=== PATIENT | male | born 1960 | race African-American/Black ===

== ENCOUNTER 2017-10-14 01:08 | Inpatient (IN) | payer MEDICARE, OTHER ==
[2017-10-14] VITALS (18 sets, daily range): BP systolic 108–158; BP diastolic 41–92
[~2017-10-14] VITALS: Ht 177.8 cm; Wt 102.5 kg
--- NOTE | 2017-10-14 01:17 | NUR ---
BIB [facility] C/C OF UMBILICUS ABDOMINAL PAIN. S/P HERNIATING MASS, PT STATES, "THIS HAPPENED AFTER LIFTING SOMETHING HEAVY TODAY." MASS IS NON PULSATING. NO S/S SOB. BILATERAL PEDAL PULSES PRESENT. MOVES ALL EXTREMITIES. S1S2 HEART SOUNDS NOTED. ACTIVE BOWEL SOUNDS NOTED. VSS. AWAITING MD ORDERS.
[2017-10-14] MEDS ORDERED: HYDROMORPHONE INJ 2 MG/ML DISP.SYRIN ONE ×3 (01:24→12:05)
[2017-10-14] MEDS ORDERED: ONDANSETRON HCL/PF 4 MG/2 ML VIAL ONE (01:24)
[2017-10-14] MEDS ORDERED: HYDROMORPHONE INJ 2 MG/ML DISP.SYRIN IV ONE (01:30)
[2017-10-14] MEDS ORDERED: ONDANSETRON HCL/PF 4 MG/2 ML VIAL IVP ONE (01:30)
[2017-10-14] MEDS ORDERED: IV NS 0.9% 1,000 ML BAG IV ONE ×2 (01:30→03:00)
[2017-10-14 01:38] LABS: BASOPHILS # (AUTO) 0.1 /CMM (0.0-0.2); BASOPHILS % (AUTO) 0.5 % (0.0-2.0); EOSINOPHILS % (AUTO) 3.2 % (0.0-6.0); HEMATOCRIT 49 % (39-51); HEMOGLOBIN 16.1 g/dL (13.5-17.5); LYMPHOCYTES # (AUTO) 3.2 /CMM (0.8-4.8); LYMPHOCYTES % (AUTO) 27.2 % (20.0-44.0); MEAN CORPUSCULAR HEMOGLOBIN 32 PG (26.0-33.0); MEAN CORPUSCULAR HGB CONC 33 g/dl (31.0-36.0); MEAN CORPUSCULAR VOLUME 96 fL (80-96); MONOCYTES # (AUTO) 0.9 /CMM (0.1-1.30); MONOCYTES % (AUTO) 7.9 % (2.0-12.0); NEUTROPHILS # (AUTO) 7.3 /CMM (1.8-8.9); NEUTROPHILS % (AUTO) 61.2 % (43.0-81.0); PLATELET COUNT (AUTO) 191 /CMM (150-450); RDW COEFFICIENT OF VARIATION 13.6 (11.5-15.0); RED BLOOD CELL COUNT(AUTO) 5.08 MIL/uL (4.5-6.0); WHITE BLOOD COUNT (AUTO) 11.9 K/uL (4.3-11.0)
[2017-10-14 01:53] LABS: INR 0.99 (0.87-1.13)
[2017-10-14 01:55] LABS: ALBUMIN 4.1 g/dL (3.4-5.0); BILIRUBIN,DIRECT 0.1 mg/dL (0.0-0.2); BILIRUBIN,TOTAL 0.3 mg/dL (0.2-1.0); CALCIUM, SERUM 9.4 mg/dL (8.5-10.1); POTASSIUM 2.9 mmol/L (3.5-5.1); TOTAL PROTEIN, SERUM 8.3 g/dL (6.4-8.2)
[2017-10-14] MEDS ORDERED: HYDROMORPHONE 1 MG/1 ML DISP.SYRIN IV ONE (02:00)
--- NOTE | 2017-10-14 02:10 | NUR ---
PT BROUGHT TO CT
--- NOTE | 2017-10-14 02:12 | NUR ---
PT RETURNED FROM CT
--- NOTE | 2017-10-14 02:20 | NUR ---
XRAY AT BEDSIDE
[2017-10-14] MEDS ORDERED: POTASSIUM CL. PREMIX PERIPHER. 50 ML IV ONE ×3 (02:37→02:48)
[2017-10-14] MEDS ORDERED: IV PREMIX 0.45% NS + KCL 1,000 ML IV ONE (02:37)
--- NOTE | 2017-10-14 02:39 | NUR ---
ER SPOKE TO DR. DELA CRUZ REGARDING PT ADMISSION.
--- NOTE | 2017-10-14 02:43 | NUR ---
ER TALKING TO DR. LUIS PEÑALOZA REGARDING PT ADMISSION. PENDING HOSPITAL ADMISSION.
--- NOTE | 2017-10-14 03:09 | NUR ---
REPORT GIVEN TO CURT DOUGLASS.
[2017-10-14] MEDS ORDERED: POTASSIUM CL. PREMIX PERIPHER. 50 ML ONE ×2 (03:29→04:07)
[2017-10-14] MEDS ORDERED: HYDROMORPHONE INJ 2 MG/ML DISP.SYRIN IV PRN (03:30)
--- NOTE | 2017-10-14 03:46 | NUR ---
MEDICATED PT ORDERED
--- NOTE | 2017-10-14 04:00 | NUR ---
[facility] RN OPENING NOTES: ADMITTED PATIENT FROM ED, PATIENT RECEIVED AWAKE AND ALERT NOT IN APPARENT DISTRESS ON ROOM AIR. SETTLED PATIENT IN, ATTACHED TO RN OPERATING ROOM, MONITOR REVEALS SINUS RHTYHM; VS LOGGED. SKIN CHECK DONE AND SKIN CARE RENDERED. PHOTODOCUMENTATION OF SKIN ISSUES FILED IN CHART. NO COMPLAINTS OF PAIN AT THIS TIME. NEW ORDERS NOTED AND CARRIED OUT. SAFETY MEASURES ENSURED; ORIENTED TO CALL LIGHT, WITHIN AT ALL TIMES. CONTINUOUSLY MONITORED.
--- NOTE | 2017-10-14 04:11 | NUR ---
PT TRANSFERED TO 116-1. STARTED INITIAL POTASSIUM 10MEQ. ENDORSED SECOND 10MEQ TO RN RAFAT. REMOVED TOTAL 20MEQ FROM OMNICELL TO ENDORSE TO RN RAFAT. PT STABLE CONDITION. VSS. NAD.
[2017-10-14] MEDS ORDERED: PIPERACILLIN /TAZOBACTAM 2.25 G VIAL IV ONE (05:28)
[2017-10-14] MEDS: PIPERACILLIN /TAZOBACTAM 4.5 G in IV NS 0.9% 50 ML IV SCH ×3 (06:09→17:05)
[2017-10-14] MEDS ORDERED: IV D5/0.45 NACL 1,000 ML IV PRN (06:30)
--- NOTE | 2017-10-14 06:30 | NUR ---
STONE CHIMNEY MASON NOTES SPOKE TO DR SMITH RELAYED LACTIC ACID OF 2.2 AND POTASSIUM OF 2.9 , 20 MEQ OF KCL IVPV GIVEN TOTAL FROM ER. DR SMITH WITH ORDER D5 1/2 NS NS AT 75CC/HR ORDERS NOTED AND CARRIED OUT.
[2017-10-14] MEDS ORDERED: ANESTHESIA TRAY IN PYXIS 1 EA TRAY MC ONE (06:41)
[2017-10-14] MEDS ORDERED: LIDOCAINE 0.5% HCL 50 ML VIAL ONE (06:42)
--- NOTE | 2017-10-14 06:45 | NUR ---
PNEUMATIC TESTER NOTES SEEN AND EXAMINED BY DR ALCALA .
--- NOTE | 2017-10-14 07:00 | NUR ---
EMPLOYEE BENEFITS INSURANCE AGENT NOTES PTS WAS CONSTRUCTION PLUMBER BY SURGERY , PTS MAINTAINED NPO , CONSENT FOR SURGERY TO BE DONE FROM OPERATING ROOM , PTS IS A/O X4 .V/S STABLE AFEBRILE, BS-208MG/DL.
[2017-10-14 07:01] LABS: APPEARANCE,URINE CLEAR (CLEAR); BILIRUBIN,URINE NEGATIVE (NEGATIVE); BLOOD, URINE NEGATIVE Ery/uL (NEGATIVE); COLOR,URINE YELLOW (YELLOW); KETONES,URINE NEGATIVE (NEGATIVE); LEUKOCYTE ESTERASE ,URINE NEGATIVE (NEGATIVE); NITRITE, URINE NEGATIVE (NEGATIVE); PH,URINE 6.5 (5.0-8.0); PROTEIN,URINE NEGATIVE (NEGATIVE); UGLUCOSE 3+ mg/dL (NEGATIVE); UROBILINOGEN,URINE 0.2 EU/dL (0.2)
[2017-10-14 07:13] LABS: BACTERIA,URINE None seen /HPF (None Seen); RBC,URINE 0-2 /HPF (0-2); SQUAMOUS EPITHELIAL CELL,UR 0-2 /HPF (None Seen); WBC,URINE 0-2 /HPF (0-3)
--- NOTE | 2017-10-14 07:21 | NUR ---
DRESS SHOE INSPECTOR NOTES PTS WAS ENDORSE TO CURT MARS.
[2017-10-14] MEDS ORDERED: FENTANYL PF 100MCG/2ML AMPUL ONE ×3 (07:30→10:20)
[2017-10-14] MEDS: POTASSIUM CL. PREMIX PERIPHER. 50 ML IV SCH ×6 (07:30→15:58)
[2017-10-14] MEDS ORDERED: BUPIVACAINE 0.5 % PF 150 MG/30 ML VIAL ONE (07:56)
[2017-10-14] MEDS ORDERED: ALBUTEROL FS 2.5 MG/3 ML VIAL.NEB ONE (11:52)
[2017-10-14] MEDS ORDERED: IPRATROPIUM NEB FS 0.5 MG/2.5 ML AMPUL.NEB ONE (11:52)
[2017-10-14] MEDS ORDERED: SUCCINYLCHOLINE CHLORIDE 20 MG/ML VIAL ONE (12:29)
--- NOTE | 2017-10-14 12:50 | NUR ---
RT NOTE RECEIVED PT FROM OR, INTUBATED WITH 8.5 ETT 23 @ THE LIP, PT ON CHARTED SETTINGS, VENT PLUGGED INTO RED OUTLET, CHANTELL AT [facility], PT STABLE WILL CONTINUE TO MONITOR Addendum: 10/14/17 at 1408 by ISMAEL MAN RT 25 @ THE LIP
--- NOTE | 2017-10-14 12:50 | NUR ---
ICU/RN: Pt received from OR, intubated, breathing even and unlabored, lung sounds clear, bilat chest rise; s/p intubation for resp distress post failed BiPAP trial, s/p emergent incarcerated hernia repair, dressing x8 C/D/I, L abd x1 dressing with mild saturation , no active bleeding noted. Abd binder in place. ST on monitor. Dr Olivera, anesthesiology and Dr Smith consulted and discussed POC. Awaiting CXR results.
[2017-10-14] MEDS: PANTOPRAZOLE 40 MG VIAL IV SCH (13:42)
--- NOTE | 2017-10-14 13:49 | NUR ---
ICU/RN: Non-admin for KCL IV replacements (unable to pull from [employer], reset required) and 1200 Zosyn dose. Zosyn administered intra-op.
--- NOTE | 2017-10-14 14:00 | NUR ---
ICU/RN: Dr Smith updated on pt status, discussed abg results, status. New orders noted and carried out.
[2017-10-14] MEDS: PROPOFOL 100 ML IV PRN ×4 (14:02→21:33)
[2017-10-14 14:05] LABS: ABG BASE EXCESS -1.4 mmol/L; ABG OXYGEN SATURATION 91.4 % (92.0-98.5); ABG PCO2 55.3 mmHg (35.0-45.0); ABG PH 7.294 (7.350-7.450); ABG PO2 60.5 mmHg (75.0-100.0); AaDO2 233.8 mmHg; COHb 0.6 % (0.5-1.5); MetHb 0.7 % (0.0-1.5); O2Hb 90.2 % (94.0-97.0); SITE, ABG Right Radial
[2017-10-14] MEDS: IV LR 1000 ML 1,000 ML IV PRN (14:18)
[2017-10-14] MEDS: HYDROMORPHONE INJ 2 MG/ML DISP.SYRIN IV PRN ×2 (14:20→19:54)
[2017-10-14] MEDS: IPRATROPIUM NEB FS 0.5 MG/2.5 ML AMPUL.NEB NEB SCH ×2 (14:51→19:49)
[2017-10-14] MEDS: ENOXAPARIN SODIUM 40 MG/0.4 ML DISP.SYRIN SQ SCH (14:58)
[2017-10-14] MEDS ORDERED: IV NS 0.9% 1,000 ML IV ONE (15:00)
[2017-10-14] MEDS ORDERED: DAPA10TA PO (15:24)
[2017-10-14] MEDS ORDERED: NEVI400T4 PO (15:24)
[2017-10-14] MEDS ORDERED: ABAC1TAB3 PO (15:24)
[2017-10-14] MEDS ORDERED: GLIP5TAB13 PO (15:24)
[2017-10-14] MEDS ORDERED: HYDR25TA4 PO (15:24)
[2017-10-14] MEDS ORDERED: OMEP40CA37 PO (15:24)
[2017-10-14] MEDS ORDERED: DUTA0.5C PO (15:24)
[2017-10-14] MEDS ORDERED: PRAV10TA40 PO (15:24)
[2017-10-14] MEDS ORDERED: ALFU10TA10 PO (15:24)
[2017-10-14] MEDS ORDERED: LOSA50TA21 PO (15:24)
[2017-10-14] MEDS ORDERED: GABA-534 PO (15:24)
[2017-10-14] MEDS ORDERED: CARV25TA2 PO (15:24)
[2017-10-14] MEDS ORDERED: CEFAZOLIN SODIUM 1 GM in IV SODIUM CHLORIDE 0.9% 50 ML IV SCH (17:00)
--- NOTE | 2017-10-14 19:30 | NUR ---
GLAUCOMA SPECIALIST: RECEIVED ORALLY INTUBATED PT AND S/P HERNIA REPAIR. VENT SETTINGS ORDERED WT 02 SAT 96% AND ABOVE. SEDATED ON DIPRIVAN AT 50MCG/KG.MIN. ABLE TO FOLLOW COMMANDS. NOTED WT FACIAL GRIMACE AND NODDED HIS HEAD WHEN ASKED IF IN PAIN. WILL ADMINISTER PAIN MED ORDERED. CONTINUE ON LR AT 120ML/HR WT GOOD URINE OUTPUT VIA GONZALEZ CATHETER. NO S/S OF INFILTRATION ON IV SITES. SR ON SUPERCALENDER OPERATOR. NOTED WT 100.5 TEMP, CONTINUOUS COOLING MEASURES RENDERED. GERMÁN NAJERA FOR FURTHER ORDERS RE FEVER. ABDOMINAL DRESSINGS WT BINDER IN PLACE WT NO ACTIVE BLEEDING. STILL ON BILAT. SOFT WRIST RESTRAINTS FOR EPISODES OF TRYING TO REACH TUBINGS. SKIN AND CIRCULATION WNL. HOB AT 45 DEGREES. SAFETY PRECAUTION NOTED AT ALL TIMES.
--- NOTE | 2017-10-14 21:20 | NUR ---
FRENCH COMBER: DR. SMITH CALLED AND MADE AWARE OF FEVER WT ORDER TO PLACE ON OGT, GIVE TYLENOL PRN FOR MILD PAIN/FEVER AND BLOOD CULTURE. NOTED AND CARRIED OUT. CONTINUOUS COOLING MEASURES RENDERED.
[2017-10-14] MEDS ORDERED: ACETAMINOPHEN LIQUID 160 MG/5 ML BOTTLE GT PRN (21:30)
--- NOTE | 2017-10-14 22:05 | NUR ---
CORE DRILL OPERATOR HELPER: ORAL AND AXILLARY TEMP NOW AT 99.5 AFTER COOLING MEASURES. WILL HOLD TYLENOL AT THIS TIME.
[2017-10-15] VITALS (31 sets, daily range): BP systolic 103–152; BP diastolic 53–120
[2017-10-15] MEDS: HYDROMORPHONE INJ 2 MG/ML DISP.SYRIN IV PRN ×3 (00:22→22:57)
[2017-10-15] MEDS: PIPERACILLIN /TAZOBACTAM 4.5 G in IV NS 0.9% 50 ML IV SCH ×5 (00:22→23:05)
[2017-10-15] MEDS: ACETAMINOPHEN 650 MG/20.3 ML UDC GT PRN ×3 (00:51→18:04)
[2017-10-15] MEDS: PROPOFOL 100 ML IV PRN ×4 (00:52→08:29)
[2017-10-15] MEDS: IV LR 1000 ML 1,000 ML IV PRN ×2 (00:53→10:13)
--- NOTE | 2017-10-15 01:00 | NUR ---
PATTERNMAKER WOOD: REASSESSED AFTER GIVEN TYLENOL FOR FEVER WT MINIMAL EFFECT. TEMP= 100.5 CONTINUE COOLING MEASURES.
[2017-10-15] MEDS: IPRATROPIUM NEB FS 0.5 MG/2.5 ML AMPUL.NEB NEB SCH ×4 (01:02→19:56)
--- NOTE | 2017-10-15 06:35 | NUR ---
FAX MACHINE OPERATOR: REMAINED SEDATED ON DIPRIVAN AT 50MCG/KG/MIN. NO ACUTE DISTRESS. NO EVIDENCE OF DISCOMFORT. STILL CORE TEMP AT 100.6. CONTINUE ON COOLING BLANKET.
[2017-10-15] MEDS ORDERED: DC PROPOFOL WHEN EXTUBATED XX PRN (08:00)
[2017-10-15 08:12] LABS: BASOPHILS % (AUTO) 0.4 % (0.0-2.0); EOSINOPHILS % (AUTO) 0.4 % (0.0-6.0); HEMATOCRIT 48 % (39-51); HEMOGLOBIN 15.6 g/dL (13.5-17.5); LYMPHOCYTES # (AUTO) 1.2 /CMM (0.8-4.8); LYMPHOCYTES % (AUTO) 10.5 % (20.0-44.0); MEAN CORPUSCULAR HEMOGLOBIN 32 PG (26.0-33.0); MEAN CORPUSCULAR HGB CONC 33 g/dl (31.0-36.0); MEAN CORPUSCULAR VOLUME 97 fL (80-96); MONOCYTES # (AUTO) 1.3 /CMM (0.1-1.30); MONOCYTES % (AUTO) 10.8 % (2.0-12.0); NEUTROPHILS % (AUTO) 77.9 % (43.0-81.0); PLATELET COUNT (AUTO) 148 /CMM (150-450); RDW COEFFICIENT OF VARIATION 14.7 (11.5-15.0); RED BLOOD CELL COUNT(AUTO) 4.92 MIL/uL (4.5-6.0); WHITE BLOOD COUNT (AUTO) 11.6 K/uL (4.3-11.0)
--- NOTE | 2017-10-15 08:15 | NUR ---
ICU/RN Pt off sedation, awake, alert, follows commands, communicates needs, no neuro deficits noted. Pt communicates that he is friends with [phone]. Agrees to release information to her and ask her to bring home meds. Called placed to Tamiko who will try to bring in home meds later today. Pt placed back on sedation for comfort.
[2017-10-15] MEDS: PANTOPRAZOLE 40 MG VIAL IV SCH (08:27)
[2017-10-15 08:41] LABS: CREATININE 0.8 mg/dL (0.6-1.3); MAGNESIUM 1.6 mg/dL (1.8-2.4); PHOSPHORUS 2.5 mg/dL (2.5-4.9); POTASSIUM 3.5 mmol/L (3.5-5.1)
[2017-10-15 08:42] LABS: THYROID STIMULATING HORMONE 0.109 uIU/mL (0.358-3.74)
[2017-10-15] MEDS: Magnesium 1GM/D5W 100ML PREMIX 100 ML IV SCH ×2 (09:40→10:51)
--- NOTE | 2017-10-15 12:00 | NUR ---
ICU/RN: Dr Sarah almazan; pt currently off sedation. Weaning trials initiated. Pt nods, in agreement with POC.
[2017-10-15 12:54] LABS: ABG BASE EXCESS 3.6 mmol/L; ABG PCO2 41.5 mmHg (35.0-45.0); ABG PH 7.447 (7.350-7.450); ABG PO2 94.2 mmHg (75.0-100.0); AaDO2 215.6 mmHg; COHb 0.4 % (0.5-1.5); MetHb 0.5 % (0.0-1.5); O2Hb 96.1 % (94.0-97.0); SITE, ABG Right Radial; VENT MODE, BG SIMV 4 PS 15 50%
--- NOTE | 2017-10-15 13:11 | NUR ---
RT NOTE PT EXTUBATED PER MD ORDER. PT AWAKE AND ALERT. NO DISTRESS NOTED. PT PLACED ON 3L NC WITH HUMIDIFIER. RN NOTIFIED. WILL CONTINUE TO MONITOR.
--- NOTE | 2017-10-15 13:30 | NUR ---
ICU/RN: Pt friendTamiko at bedside with pt home meds including HIV meds.; Chapo Garcia NP paged for orders. Home meds sent to Rx.
[2017-10-15] MEDS: ABACAVIR SULFATE PO SCH (17:46)
[2017-10-15] MEDS: LAMIVUDINE PO SCH (17:46)
--- NOTE | 2017-10-15 18:40 | NUR ---
ICU/RN: Chapo Garcia, TUBE CUTTER OPERATOR rounds; updated on pt status. Awaiting med rec. Will cont to monitor pt
--- NOTE | 2017-10-15 19:08 | NUR ---
ICU/RN: Pt resting in bed, states relief from Zofran and Dilaudid dose. Pain management with Tylenol ineffective. Bedside report given to Jm RN. Informed of pt Hx of sleep apnea, possible need for CPAP.
[2017-10-15] MEDS: ONDANSETRON HCL/PF 4 MG/2 ML VIAL IVP PRN (19:09)
--- NOTE | 2017-10-15 19:30 | NUR ---
RN INITIAL NOTES RECEIVED PATIENT IN BED, AWAKE, ALERT AND ORIENTED X4, ABLE TO VERBALIZE NEEDS. PATIENT WITH C/O ABDOMINAL PAIN 4/10, BUT STATES IT IS "GETTING BETTER AFTER THE MEDICATION." BREATHING EVEN, SLIGHTLY TACHYPNEIC, PATIENT DENIES ANY SOB. NOTED WITH PRODUCTIVE COUGH, TEACHING RENDERED REGARDING USING PILLOW TO BRACE ABDOMEN WHILE COUGHING, WITH VERBALIZATION OF UNDERSTANDING. ON TELEMETRY MONITORING, REVEALING SINUS TACHYCARDIA, HR 120s AT THIS TIME. LEFT AND RIGHT HAND #18G IVs PATENT AND INTACT, FLUSHED WITH NS, FREE FROM ANY S/S OF INFILTRATION OR PHLEBITIS, ONGOING IVF OF LR @ 40ML/HR. NOTED WITH MULTIPLE BANDAGES ON ABDOMEN OVER LAP SITES, ALL DRY AND INTACT, ABDOMINAL BINDER IN PLACE. CALL LIGHT LEFT WITHIN EASY REACH, BED IN LOWEST AND LOCKED POSITION. WILL CONTINUE TO CLOSELY MONITOR
--- NOTE | 2017-10-15 20:00 | NUR ---
RN NOTES PATIENT SEEN AND EXAMINED BY DR ALCALA. NO NEW ORDERS RECEIVED AT THIS TIME. WILL CONTINUE TO CLOSELY MONITOR THE PATIENT
[2017-10-15] MEDS: ENOXAPARIN SODIUM 40 MG/0.4 ML DISP.SYRIN SQ SCH (20:06)
--- NOTE | 2017-10-15 21:00 | NUR ---
RN NOTES PATIENT WITH PRODUCTIVE COUGH, NOTED WITH THICK, BAKER COLORED SPUTUM. INSTRUCTED PATIENT REGARDING YANKAUER USE, PATIENT VERBALIZES UNDERSTANDING.
--- NOTE | 2017-10-15 22:58 | NUR ---
RN NOTES PATIENT REQUESTING FOR IV PAIN MEDICATION, NONPHARMACOLOGICAL PAIN MANAGEMENT TECHNIQUES INEFFECTIVE. DILAUDID 1MG IVP ADMINISTERED ORDERED
--- NOTE | 2017-10-15 23:18 | NUR ---
RN NOTES PATIENT STATES HE HAS A HISTORY OF SLEEP APNEA, AND IS USUALLY ON CPAP AT NIGHT. PATIENT REQUESTING FOR CPAP AT THIS TIME, STATING "IT WILL PROBABLY HELP ME SLEEP." DR SMITH MADE AWARE OF PATIENT'S REQUEST, WITH ORDER TO START CPAP, SETTINGS PER RT. RT MARLENY MADE AWARE OF NEW ORDERS.
[2017-10-16] VITALS (29 sets, daily range): BP systolic 121–151; BP diastolic 62–120
[2017-10-16] MEDS: ACETAMINOPHEN 650 MG/20.3 ML UDC GT PRN ×2 (00:28→19:41)
[2017-10-16] MEDS: IPRATROPIUM NEB FS 0.5 MG/2.5 ML AMPUL.NEB NEB SCH ×4 (01:44→19:30)
[2017-10-16 05:16] LABS: BASOPHILS # (AUTO) 0.1 /CMM (0.0-0.2); BASOPHILS % (AUTO) 0.4 % (0.0-2.0); EOSINOPHILS % (AUTO) 0.3 % (0.0-6.0); HEMATOCRIT 45 % (39-51); HEMOGLOBIN 14.8 g/dL (13.5-17.5); LYMPHOCYTES # (AUTO) 1.1 /CMM (0.8-4.8); LYMPHOCYTES % (AUTO) 8.1 % (20.0-44.0); MEAN CORPUSCULAR HEMOGLOBIN 32 PG (26.0-33.0); MEAN CORPUSCULAR HGB CONC 33 g/dl (31.0-36.0); MEAN CORPUSCULAR VOLUME 97 fL (80-96); MONOCYTES # (AUTO) 1.2 /CMM (0.1-1.30); MONOCYTES % (AUTO) 8.3 % (2.0-12.0); NEUTROPHILS # (AUTO) 11.7 /CMM (1.8-8.9); NEUTROPHILS % (AUTO) 82.9 % (43.0-81.0); PLATELET COUNT (AUTO) 151 /CMM (150-450); RDW COEFFICIENT OF VARIATION 14.6 (11.5-15.0); RED BLOOD CELL COUNT(AUTO) 4.66 MIL/uL (4.5-6.0); WHITE BLOOD COUNT (AUTO) 14.1 K/uL (4.3-11.0)
[2017-10-16] MEDS: PIPERACILLIN /TAZOBACTAM 4.5 G in IV NS 0.9% 50 ML IV SCH ×4 (05:20→23:47)
--- NOTE | 2017-10-16 05:29 | NUR ---
RN NOTES PATIENT TAKEN OFF CPAP, PLACED BACK ON O2 VIA NC @ 4LPM, TOLERATING WELL, NO S/S OF RESPIRATORY DISTRESS AT THIS TIME, WILL CONTINUE TO CLOSELY MONITOR
[2017-10-16 05:42] LABS: CALCIUM, SERUM 8.4 mg/dL (8.5-10.1); CREATININE 0.9 mg/dL (0.6-1.3); MAGNESIUM 2.5 mg/dL (1.8-2.4); PHOSPHORUS 2.4 mg/dL (2.5-4.9); POTASSIUM 3.4 mmol/L (3.5-5.1)
--- NOTE | 2017-10-16 06:00 | NUR ---
RN NOTES PATIENT REFUSING TO HAVE BED BATH DUE TO PAIN. EXPLAINED TO THE PATIENT THAT SHEETS AND GOWN MUST AT LEAST BE CHANGED. PATIENT STILL STRONGLY REFUSING DUE TO PAIN. PATIENT STATES, "IT'S OKAY, IM STILL CLEAN. I HAVENT EATEN SO I HAVENT POOPED YET." PATIENT REMAINS CLEAN AND DRY, LINENS STRAIGHTENED OUT. PATIENT PLACED BACK ON CPAP PER REQUEST, WILL CONTINUE TO CLOSELY MONITOR
[2017-10-16] MEDS: ONDANSETRON HCL/PF 4 MG/2 ML VIAL IVP PRN (06:37)
--- NOTE | 2017-10-16 07:00 | NUR ---
RN CLOSING NOTES BEDSIDE REPORT GIVEN TO DAY SHIFT NURSE EDMUND FOR CONTINUITY OF CARE. PATIENT CONTINUES ON CPAP, TOLERATING WELL. IV SITES PATENT AND INTACT.
[2017-10-16] MEDS: PANTOPRAZOLE 40 MG VIAL IV SCH (07:24)
[2017-10-16] MEDS ORDERED: POTASSIUM PHOSPHATE MM 15 MMOL in IV D5W 250 ML IV SCH (07:30)
--- NOTE | 2017-10-16 07:35 | NUR ---
INITIAL HYDROGRAPHICAL TECHNICAL OFFICER NOTE RCVD PT AWAKE AND ALERT, ABLE TO FOLLOW COMMANDS, PT ABLE TO TRANSFER TO CHAIR WITH ONE PERSON ASSIST. SR ON TELE. TRANSITIONED FROM CPAP TO NC. GONZALEZ TO GRAVITY DRAINING CLOUDY, YELLOW URINE WITH SEDIMENT. ABDOMINAL BINDER IN PLACE, SURGICAL DRESSINGS C/D/I, NO S/O BLEEDING OBSERVED. IV SITES C/D/I/PATENT. IVF INFUSING NO S/O INFILTRATION/PHLEBITIS OBSERVED. WILL CONTINUE TO MONITOR PT FOR SAFETY AND COMFORT. CALL LIGHT WITHIN REACH. BED IN LOW AND LOCKED POSITION.
[2017-10-16] MEDS: POTASSIUM PHOSPHATE MM 7.5 MMOL in IV D5W 100 ML IV SCH ×2 (09:32→12:04)
[2017-10-16] MEDS ORDERED: POTASSIUM CHLORIDE 20 MEQ TAB.PRT.SR PO SCH (10:00)
[2017-10-16 10:41] LABS: ABG BASE EXCESS 0.5 mmol/L; ABG OXYGEN SATURATION 98.2 % (92.0-98.5); ABG PCO2 31.6 mmHg (35.0-45.0); ABG PH 7.481 (7.350-7.450); ABG PO2 126.8 mmHg (75.0-100.0); AaDO2 266.2 mmHg; COHb 0.5 % (0.5-1.5); MetHb 0.5 % (0.0-1.5); O2Hb 97.2 % (94.0-97.0); PEEP,BG 5 cm H2O; SITE, ABG Right Radial; VT, ABG 650 mL
--- NOTE | 2017-10-16 11:07 | NUR ---
DIRECTOR SCRIPT NOTE PT C/O CHEST TIGHTNESS, PAIN RADIATING TO HIS BACK. VITAL SIGNS STABLE, PER SUPERVISOR STOCK RANCH NEW BUNDLE BRANCH AND PVCs, DR. CISNEROS INFORMED ECG ORDERED. WILL CONTINUE TO MONITOR.
[2017-10-16] MEDS: MORPHINE SULFATE INJ 4 MG/ML DISP.SYRIN IV PRN ×2 (13:26→21:46)
[2017-10-16] MEDS: IV LR 1000 ML 1,000 ML IV PRN (13:32)
[2017-10-16] MEDS: MAG HYDROX/AL HYDROX/SIMETH 30 ML UDC PO PRN (14:00)
[2017-10-16] MEDS: NITROGLYCERIN 30 GM TUBE TOP SCH ×3 (16:45→23:49)
[2017-10-16] MEDS: ABACAVIR SULFATE PO SCH (17:15)
[2017-10-16] MEDS: LAMIVUDINE PO SCH (17:15)
--- NOTE | 2017-10-16 17:16 | NUR ---
CABLE INSPECTOR NOTE NITRO OINTMENT HELD SINCE LAST ADMINISTRATION WAS GIVEN AT 1645. WILL CONTINUE TO MONITOR.
[2017-10-16] MEDS: SUCRALFATE 1 G/10 ML UDC GT SCH ×2 (17:37→21:07)
--- NOTE | 2017-10-16 18:45 | NUR ---
HOURLY SHIFT MANAGER NOTE PT AWAKE AND ALERT, SHOWING NO S/O DISTRESS/PAIN. ST ON TELE. TOLERATING O2 VIA NC. GONZALEZ DISCONTINUED ORDERED. VOIDING A BUT TO URINAL. ABDOMINAL BINDER IN PLACE. IV SITES C/D/I/PATENT. NO S/O INFILTRATION/PHLEBITIS OBSERVED. IVF INFUSING. PT'S CARE WILL BE ENDORSED TO WESTERN TACK ASSEMBLY LINE WORKER RN FOR CONTINUITY OF CARE. BED IN LOW AND LOCKED POSITION. PT SITTING AT EDGE OF BED. DR. ALCALA IN UNIT ASSESSING PT HE WAS INFORMED REGARDING PT'S CARDIAC COMPLAINS EARLIER IN THE DAY AND THAT DR. CISNEROS RECOMMENDED TO KEEP HIM OVERNIGHT. MADE AWARE OF PT'S ABDOMINAL DISTENTION, UNABLE TO PASS GAS, GASTRIC REFLUX DISCOMFORT THROUGHOUT THE DAY. DR. ALCALA RECOMMENDED TO KEEP PT NPO AND CONTINUE TO MOBILIZE HIM. DR. NUNEZ IN UNIT ALSO ASSESSED PT AND RECOMMENDED TO START HIM ON SUCRAFATE FOR HIS GASTRIC COMPLAINTS.
[2017-10-16] MEDS: MENTHOL/CETYLPYRD (CEPACOL) 1 LOZ LOZENGE PO PRN ×2 (18:50→21:07)
--- NOTE | 2017-10-16 20:00 | NUR ---
RN NOTES PT IS AWAKE SITTING ON THE BED. NO ACUTE RESP DISTRESS ON O2 5LPM VIA NC. SATURATION 96%. COUGH WITH THICK SECRETION PRESENT PT ABLE SUCTIONED HIMSELF. COMPLAINING OF ABDOMINAL PAIN DURING COUGH, FLEET ENEMA GIVEN ORDERED, TYLENOL FOR PAIN AND COUGH PER PT. REQUESTED. IV SITE ON LH G 18 AND RT HAND G 18 WITH LR @ 40 ML/HR INTACT AND PATENT. TELE MONITOR. REVEALS ST 100'S. PT USED URINAL WITH VITO COLOR OUTPUT. AWARE TO USED CALL LIGHT. ABDOMEN DISTENDED SURGERY SITE INTACT NO ACTIVE BLEEDING. KEPT PT CLEAN AND DRY. WILL CONTINUE TO MONITOR.
[2017-10-16] MEDS ORDERED: NA PHOS,M-B/NA PHOS,DI-BA 1 EA ENEMA RC ONE (20:30)
--- NOTE | 2017-10-16 20:44 | NUR ---
PT TOOK BIPAP MASK OFF. PLACED BACK ON 5L NC. RN NOTIFIED. WILL CONTINUE TO MONITOR.
[2017-10-16] MEDS: ENOXAPARIN SODIUM 40 MG/0.4 ML DISP.SYRIN SQ SCH (21:16)
[2017-10-17] VITALS (21 sets, daily range): BP systolic 107–140; BP diastolic 62–96
[2017-10-17] MEDS: IPRATROPIUM NEB FS 0.5 MG/2.5 ML AMPUL.NEB NEB SCH ×4 (01:14→20:25)
--- NOTE | 2017-10-17 01:44 | NUR ---
RN NOTES PT TOOK OFF BIPAP AGAIN FOR THE 3RD TIME WANTS TO CHANGE TO DIFF MASK AGAIN, RT MADE AWARE.
[2017-10-17] MEDS: MORPHINE SULFATE INJ 4 MG/ML DISP.SYRIN IV PRN ×4 (02:19→21:46)
[2017-10-17] MEDS: ACETAMINOPHEN 650 MG/20.3 ML UDC GT PRN ×3 (04:16→21:11)
[2017-10-17] MEDS: MENTHOL/CETYLPYRD (CEPACOL) 1 LOZ LOZENGE PO PRN ×5 (04:20→21:48)
[2017-10-17 05:00] LABS: BASOPHILS % (AUTO) 0.2 % (0.0-2.0); EOSINOPHILS % (AUTO) 1.9 % (0.0-6.0); HEMATOCRIT 42 % (39-51); HEMOGLOBIN 13.5 g/dL (13.5-17.5); LYMPHOCYTES # (AUTO) 1.5 /CMM (0.8-4.8); LYMPHOCYTES % (AUTO) 11.1 % (20.0-44.0); MEAN CORPUSCULAR HEMOGLOBIN 32 PG (26.0-33.0); MEAN CORPUSCULAR HGB CONC 32 g/dl (31.0-36.0); MEAN CORPUSCULAR VOLUME 98 fL (80-96); MONOCYTES # (AUTO) 1.4 /CMM (0.1-1.30); MONOCYTES % (AUTO) 10.1 % (2.0-12.0); NEUTROPHILS # (AUTO) 10.4 /CMM (1.8-8.9); NEUTROPHILS % (AUTO) 76.7 % (43.0-81.0); PLATELET COUNT (AUTO) 154 /CMM (150-450); RDW COEFFICIENT OF VARIATION 14.5 (11.5-15.0); RED BLOOD CELL COUNT(AUTO) 4.24 MIL/uL (4.5-6.0); WHITE BLOOD COUNT (AUTO) 13.6 K/uL (4.3-11.0)
[2017-10-17 05:15] LABS: CREATININE 0.8 mg/dL (0.6-1.3); MAGNESIUM 2.3 mg/dL (1.8-2.4); PHOSPHORUS 2.5 mg/dL (2.5-4.9); POTASSIUM 3.8 mmol/L (3.5-5.1)
[2017-10-17] MEDS: PIPERACILLIN /TAZOBACTAM 4.5 G in IV NS 0.9% 50 ML IV SCH ×4 (05:53→23:45)
[2017-10-17] MEDS: NITROGLYCERIN 30 GM TUBE TOP SCH ×4 (05:54→23:46)
--- NOTE | 2017-10-17 06:46 | NUR ---
RN NOTES PT ASLEEP WELL ON BED. EPISODE OF SOB NOTED AT TIMES WHEN PT COUGH SO HARD THAT PUSHED HIS ABDOMEN AND CAUSE PAIN. . PT IS AFEBRILE THROUGHOUT THE SHIFT, PREFERS TO SUCTION SELF. CPAP PLACED IN A SHORT PERIODS OF TIME THEN PT REMOVE IT TIME TO TIME. PT IS AOX3 AWARE AND VERBALIZED UNDERSTANDING OF POC. PLACED PT TO 02 5LPM VIA NS SATURATION >95%. ALL NEEDS ATTENDED. CALL LIGHT KEPT WITHIN EASY REACH AND PROMPTLY.
--- NOTE | 2017-10-17 07:42 | NUR ---
PT REFUSED RESP TX AT THIS TIME. NO S/S OF SOB NOTED. WILL CONTINUE TO MONITOR PT Addendum: 10/17/17 at 0743 by TIM MELGAR RT Amended: Links added.
[2017-10-17] MEDS: PANTOPRAZOLE 40 MG VIAL IV SCH (08:01)
[2017-10-17] MEDS: MAG HYDROX/AL HYDROX/SIMETH 30 ML UDC PO PRN (08:01)
[2017-10-17] MEDS: SUCRALFATE 1 G/10 ML UDC GT SCH ×4 (08:01→21:45)
--- NOTE | 2017-10-17 08:45 | NUR ---
ICU/RN: Dr Brunson rounds; at bedside for cardiac consult. Updated on pt status, abn labs and POC dw pt. Cleared to leave ICU from cardiac perspective. New orders noted and carried out.
--- NOTE | 2017-10-17 09:30 | NUR ---
ICU/RN: Dr Sarah almazan; updated on pt status. Pt placed back on O2 2L/min via NC, noted with SOB with exertion. Ok to use own CPAP at night per MD, Will (friend) to bring machine later today. Ok to transfer to [facility] per pulm. soundscriber mechanic updated.
[2017-10-17] MEDS: ASPIRIN 81 MG TAB.CHEW PO SCH (09:32)
[2017-10-17] MEDS: GUAIFENESIN 300 MG/15 ML UDC PO PRN ×2 (09:37→20:49)
[2017-10-17] MEDS: ONDANSETRON HCL/PF 4 MG/2 ML VIAL IVP PRN ×2 (11:14→18:03)
[2017-10-17] MEDS: METOPROLOL TARTRATE 50 MG TABLET PO SCH ×3 (11:15→23:45)
[2017-10-17] MEDS: SENNOSIDES/DOCUSATE SODIUM 1 TAB TABLET PO SCH (13:13)
[2017-10-17] MEDS: POLYETHYLENE GLYCOL 3350 17 GM POWD.PACK PO SCH (13:14)
--- NOTE | 2017-10-17 13:30 | NUR ---
ICU/RN: Spoke with Dr Denise regarding POC, informed of hgb drop yesterday, s/p blood transfusion. Inquired whether MD plans to schedule an EGD for pt - per MD "I will come by later and see the patient." ux design manager updated. Addendum: 10/17/17 at 1401 by KAELA BORGES RN wrong entry, please disregard
--- NOTE | 2017-10-17 15:00 | NUR ---
ICU/RN: Dr Beltran notified of pending home med rec. Awaiting orders.
[2017-10-17] MEDS: IV LR 1000 ML 1,000 ML IV PRN (16:07)
[2017-10-17] MEDS: ABACAVIR SULFATE PO SCH ×2 (17:08→17:26)
[2017-10-17] MEDS: LAMIVUDINE PO SCH ×2 (17:08→17:26)
--- NOTE | 2017-10-17 17:26 | NUR ---
ICU/RN: Pt refused HIV meds; strongly educated on need to take routinely, still refuses.
--- NOTE | 2017-10-17 18:00 | NUR ---
RN NOTES RECEIVED PT ON BED, A/Ox4, ON O2 , 2L N/C , NO SOB NOTED , ON TELE SR HR IN 90'S , R AND L HAND IV SITES G 18 CDI, LR AT 40CC/HR RUNNING , SR UP x3, CALL LIGHT WITHIN EASY REACH , BED LOCKED AND IN LOWEST POSITION , CONTINUE TO MONITOR PT NGHIA .
--- NOTE | 2017-10-17 18:05 | NUR ---
ICU/RN: Pt transferred in stable condition with medications and belongings; no distress noted. Administered morphine and zofran for comfort. Reassessment and infusion of Zosyn endorsed to CURT Franks for INDIRA
--- NOTE | 2017-10-17 19:45 | NUR ---
[facility] RN OPENING NOTES RECEIVED REPORT FROM EMELY ELIAS. PATIENT A/A/O X4, ABLE TO MAKE NEEDS KNOWN. BREATHING EVEN & UNLABORED, TOLERATING O2 @ 2LPM VIA NC. ON TELE W/ SINUS RHYTHM, HR 86. DENIES ANY SOB OR DIFFICULTY BREATHING. DENIES ANY CHEST PAIN OR DISCOMFORT. RIGHT HAND IV #18 INTACT & PATENT W/ DRESSING CDI & IVF LR INFUSING WELL 40 ML/HR. RIGHT WRIST IV REMOVED D/T LEAKING NOTED. SURGICAL DRESSING CHECKED & REINFORCED & ABDOMINAL BINDER KEPT IN PLACE. DENIES ANY PAIN OR DISCOMFORT @ THIS TIME. SAFETY MEASURES IN PLACE & INSTRUCTED TO USE CALL LIGHT FOR ASSISTANCE. WILL CONTINUE TO MONITOR.
[2017-10-17] MEDS: ENOXAPARIN SODIUM 40 MG/0.4 ML DISP.SYRIN SQ SCH (21:48)
[2017-10-18] VITALS: BP 123/81
[2017-10-18] MEDS: IPRATROPIUM NEB FS 0.5 MG/2.5 ML AMPUL.NEB NEB SCH ×4 (01:30→20:14)
[2017-10-18] MEDS: MENTHOL/CETYLPYRD (CEPACOL) 1 LOZ LOZENGE PO PRN ×7 (01:34→21:43)
[2017-10-18] MEDS: MORPHINE SULFATE INJ 4 MG/ML DISP.SYRIN IV PRN ×5 (02:54→21:44)
[2017-10-18] MEDS: GUAIFENESIN 300 MG/15 ML UDC PO PRN ×2 (02:54→08:23)
[2017-10-18 04:00] VITALS: BP 110/76
[2017-10-18] MEDS: PIPERACILLIN /TAZOBACTAM 4.5 G in IV NS 0.9% 50 ML IV SCH ×3 (05:19→17:13)
[2017-10-18] MEDS: NITROGLYCERIN 30 GM TUBE TOP SCH ×3 (05:25→17:18)
[2017-10-18] MEDS: METOPROLOL TARTRATE 50 MG TABLET PO SCH ×3 (05:25→17:18)
[2017-10-18 06:36] LABS: BASOPHILS % (AUTO) 0.4 % (0.0-2.0); EOSINOPHILS % (AUTO) 5.4 % (0.0-6.0); HEMATOCRIT 40 % (39-51); HEMOGLOBIN 12.8 g/dL (13.5-17.5); LYMPHOCYTES # (AUTO) 1.9 /CMM (0.8-4.8); LYMPHOCYTES % (AUTO) 17.7 % (20.0-44.0); MEAN CORPUSCULAR HEMOGLOBIN 32 PG (26.0-33.0); MEAN CORPUSCULAR HGB CONC 32 g/dl (31.0-36.0); MEAN CORPUSCULAR VOLUME 98 fL (80-96); MONOCYTES # (AUTO) 1.3 /CMM (0.1-1.30); MONOCYTES % (AUTO) 12.3 % (2.0-12.0); NEUTROPHILS % (AUTO) 64.2 % (43.0-81.0); PLATELET COUNT (AUTO) 182 /CMM (150-450); RDW COEFFICIENT OF VARIATION 14.4 (11.5-15.0); RED BLOOD CELL COUNT(AUTO) 4.05 MIL/uL (4.5-6.0); WHITE BLOOD COUNT (AUTO) 10.9 K/uL (4.3-11.0)
[2017-10-18 06:38] LABS: CALCIUM, SERUM 8.2 mg/dL (8.5-10.1); CREATININE 0.8 mg/dL (0.6-1.3); MAGNESIUM 2.1 mg/dL (1.8-2.4); PHOSPHORUS 3.1 mg/dL (2.5-4.9); POTASSIUM 3.6 mmol/L (3.5-5.1)
--- NOTE | 2017-10-18 07:15 | NUR ---
[facility] RN OPENING NOTES RECEIVED REPORT FROM PM RN. PATIENT A/A/O X4, ABLE TO MAKE NEEDS KNOWN. BREATHING EVEN & UNLABORED, TOLERATING O2 @ 2LPM VIA NC. ON TELE W/ SINUS RHYTHM, HR 81. DENIES ANY SOB OR DIFFICULTY BREATHING. DENIES ANY CHEST PAIN OR DISCOMFORT. RIGHT HAND IV #18 INTACT & PATENT W/ DRESSING CDI & IVF LR INFUSING WELL 40 ML/HR. SURGICAL DRESSING CHECKED & REINFORCED & ABDOMINAL BINDER KEPT IN PLACE. C/O PAIN 07/05 . SAFETY MEASURES IN PLACE & INSTRUCTED TO USE CALL LIGHT FOR ASSISTANCE. BED IS LOCKED AND IN LOW POSITION.SRX3.WILL CONTINUE TO MONITOR.
[2017-10-18 08:00] VITALS: BP 118/64
[2017-10-18] MEDS: PANTOPRAZOLE 40 MG VIAL IV SCH (08:13)
[2017-10-18] MEDS: ASPIRIN 81 MG TAB.CHEW PO SCH (08:13)
[2017-10-18] MEDS: POLYETHYLENE GLYCOL 3350 17 GM POWD.PACK PO SCH (08:13)
[2017-10-18] MEDS: SENNOSIDES/DOCUSATE SODIUM 1 TAB TABLET PO SCH (08:13)
[2017-10-18] MEDS: SUCRALFATE 1 G/10 ML UDC GT SCH ×4 (08:13→21:44)
--- NOTE | 2017-10-18 10:00 | NUR ---
RN NOTES PATIENT HAS DAILY ABG ORDER.RT MADE AWARE.SPOKE TO NARCISO .SHE TOLD THAT SHE ASKED TO .DONT WANT TO DO AN ABG TODAY.ORDER IS FROM ICU FOLLOW UP.WILL FOLLOW UP TOMORROW.
[2017-10-18] MEDS: ACETAMINOPHEN 650 MG/20.3 ML UDC GT PRN ×2 (11:30→17:14)
--- NOTE | 2017-10-18 13:00 | NUR ---
RN NOTES SEEN BY MADE AWARE ABOUT ALL LABS AND MADE AWARE ABOUT PATIENT REQUEST FOR PO INTAKE.SHE ASKED TO FOLLOW UP WITH SURGERY DOCTOR.
[2017-10-18 16:00] VITALS: BP 109/52
[2017-10-18] MEDS: LAMIVUDINE PO SCH (17:15)
[2017-10-18] MEDS: ABACAVIR SULFATE PO SCH (17:15)
--- NOTE | 2017-10-18 18:47 | NUR ---
MEDSURG RN OPENING NOTES PATIENT A/A/O X4, ABLE TO MAKE NEEDS KNOWN. BREATHING EVEN & UNLABORED, TOLERATING O2 @ 2LPM VIA NC. DENIES ANY SOB OR DIFFICULTY BREATHING. DENIES ANY CHEST PAIN OR DISCOMFORT. RIGHT HAND IV #18 INTACT & PATENT W/ DRESSING CDI & IVF LR INFUSING WELL LR 40 ML/HR. SURGICAL DRESSING CHECKED & REINFORCED & ABDOMINAL BINDER KEPT IN PLACE. SAFETY MEASURES IN PLACE & INSTRUCTED TO USE CALL LIGHT FOR ASSISTANCE. BED IS LOCKED AND IN LOW POSITION.SRX3. MADE AWARE ABOUT PATIENT REQUEST TO START EATING.MADE HIM AWARE ALSO HE HAS ABDOMINAL DISTENTION.HE SAID HE WILL CALL BACK.WAITING FOR CALL BACK.WILL ENDORSE TO PM NURSE FOR INDIRA.
--- NOTE | 2017-10-18 18:59 | NUR ---
RN NOTES SEEN BY WITH NEW ORDER FOR CT OF ABDOMEN PELVIS WITH CONTRAST
--- NOTE | 2017-10-18 19:20 | NUR ---
RN OPENING NOTES PT AWAKE AND ALERT SITTING AT SIDE OF BED. PT ON 3L 02 VIA NASAL CANNULA. PT HAS A RIGHT HAND IV #18, INTACT AND PATENT. NO COMPLAINTS OF SOB OR DISTRESS AT THIS TIME. PT ABD SX DRESSINGS INTACT AND ABD BINDER IN PLACE. PER DAY SHIFT NURSE DR ALCALA ORDERED CT OF ABD DUE TO ABD DISTENTION. SAFETY PRECAUTIONS IN PLACE, BED IN LOWEST LOCKED POSITION, X2 SIDE RAILS UP CALL LIGHT WITHIN REACH. WILL CONTINUE TO MONITOR.
[2017-10-18] MEDS ORDERED: DIATR MEGLU/DIATRIZOATE SODIUM 30 ML BOTTLE (GASTROGRAPHIN) ONE (19:48)
[2017-10-18 20:00] VITALS: BP 121/75
[2017-10-18] MEDS: ENOXAPARIN SODIUM 40 MG/0.4 ML DISP.SYRIN SQ SCH (21:46)
[2017-10-18 22:00] VITALS: BP 121/75
[2017-10-18] MEDS: IV LR 1000 ML 1,000 ML IV PRN (22:38)
[2017-10-18] MEDS ORDERED: MENTHOL/CETYLPYRD (CEPACOL) 1 LOZ LOZENGE PO PRN (23:00)
--- NOTE | 2017-10-19 | NUR ---
RN NOTES PER MIKAEL AGUIRRE MD PT HAS A SMALL BOWEL OBSTRUCTION. DR ALEMAN WAS NOTIFIED AND ORDERED THE PATIENT TO CONTINUE TO BE NPO AND CMP FOR MORNING LABS.
[2017-10-19] MEDS: MENTHOL/CETYLPYRD (CEPACOL) 1 LOZ LOZENGE PO PRN ×2 (00:21→05:51)
[2017-10-19] MEDS: PIPERACILLIN /TAZOBACTAM 4.5 G in IV NS 0.9% 50 ML IV SCH ×5 (00:23→23:01)
[2017-10-19] MEDS: NITROGLYCERIN 30 GM TUBE TOP SCH ×5 (00:25→23:07)
[2017-10-19] MEDS: METOPROLOL TARTRATE 50 MG TABLET PO SCH ×5 (00:26→23:08)
[2017-10-19] MEDS: IPRATROPIUM NEB FS 0.5 MG/2.5 ML AMPUL.NEB NEB SCH ×4 (01:30→19:30)
[2017-10-19] MEDS: MORPHINE SULFATE INJ 4 MG/ML DISP.SYRIN IV PRN ×5 (01:35→23:18)
[2017-10-19] MEDS: GUAIFENESIN 300 MG/15 ML UDC PO PRN ×3 (01:43→23:02)
[2017-10-19 06:11] LABS: BASOPHILS # (AUTO) 0.1 /CMM (0.0-0.2); BASOPHILS % (AUTO) 0.5 % (0.0-2.0); EOSINOPHILS % (AUTO) 5.4 % (0.0-6.0); HEMATOCRIT 40 % (39-51); LYMPHOCYTES # (AUTO) 1.5 /CMM (0.8-4.8); LYMPHOCYTES % (AUTO) 14.8 % (20.0-44.0); MEAN CORPUSCULAR HEMOGLOBIN 32 PG (26.0-33.0); MEAN CORPUSCULAR HGB CONC 33 g/dl (31.0-36.0); MEAN CORPUSCULAR VOLUME 98 fL (80-96); MONOCYTES # (AUTO) 1.3 /CMM (0.1-1.30); MONOCYTES % (AUTO) 12.7 % (2.0-12.0); NEUTROPHILS # (AUTO) 6.7 /CMM (1.8-8.9); NEUTROPHILS % (AUTO) 66.6 % (43.0-81.0); PLATELET COUNT (AUTO) 190 /CMM (150-450); RDW COEFFICIENT OF VARIATION 14.4 (11.5-15.0); RED BLOOD CELL COUNT(AUTO) 4.05 MIL/uL (4.5-6.0)
[2017-10-19 06:48] LABS: ALBUMIN 2.9 g/dL (3.4-5.0); BILIRUBIN,TOTAL 0.7 mg/dL (0.2-1.0); CALCIUM, SERUM 8.7 mg/dL (8.5-10.1); CREATININE 0.8 mg/dL (0.6-1.3); MAGNESIUM 1.9 mg/dL (1.8-2.4); PHOSPHORUS 4.1 mg/dL (2.5-4.9); POTASSIUM 3.3 mmol/L (3.5-5.1); TOTAL PROTEIN, SERUM 7.2 g/dL (6.4-8.2)
--- NOTE | 2017-10-19 06:53 | NUR ---
RN CLOSING NOTES PT AWAKE AND ALERT RESTING IN BED. PT ON 3L 02 VIA NASAL CANNULA. PT HAS A RIGHT HAND IV #18 RUNNING LR @40ML/HR PT TOLERATING WELL. IV INTACT AND PATENT. NO COMPLAINTS OF SOB OR DISTRESS AT THIS TIME. PT ABD SX DRESSINGS INTACT AND ABD BINDER IN PLACE. ALL PATIENT NEEDS MET OVERNIGHT. SAFETY PRECAUTIONS IN PLACE, BED IN LOWEST LOCKED POSITION, X2 SIDE RAILS UP CALL LIGHT WITHIN REACH. WILL CONTINUE TO MONITOR.
--- NOTE | 2017-10-19 07:10 | NUR ---
MS RN NOTES PATIENT IN BED ALERT ORIENTED X 4.NO ACUTE DISTRESS NOTED. BREATHING UNLABORED. NO SOB NOTED.ON O2 @ 3LPM VIA NC. IV ACCESS PATENT AND INTACT, NO REDNESS NO SWELLING NOTED. ABDOMINAL SURGERY DRESSING INTACT, WITH ABDOMINAL BINDER, CLEAN AND DRY. CALL LIGHT WITHIN REACH. SAFETY MEASURES IN PLACE. BED LOCKED, LOW POSITION. HOB ELEVATED. WILL CONTINUE TO MONITOR ACCORDINGLY.
[2017-10-19 08:00] VITALS: BP 121/73
[2017-10-19] MEDS: SUCRALFATE 1 G/10 ML UDC GT SCH ×4 (08:38→21:51)
[2017-10-19] MEDS: PANTOPRAZOLE 40 MG VIAL IV SCH (08:38)
[2017-10-19] MEDS: POLYETHYLENE GLYCOL 3350 17 GM POWD.PACK PO SCH (08:38)
[2017-10-19] MEDS: ASPIRIN 81 MG TAB.CHEW PO SCH (08:38)
[2017-10-19] MEDS: POTASSIUM CHLORIDE 20 MEQ TAB.PRT.SR PO SCH ×2 (08:38→09:59)
[2017-10-19] MEDS: SENNOSIDES/DOCUSATE SODIUM 1 TAB TABLET PO SCH (08:38)
[2017-10-19 10:00] VITALS: BP 121/73
[2017-10-19] MEDS ORDERED: POTASSIUM CHLORIDE 20 MEQ TAB.PRT.SR PO SCH (12:00)
[2017-10-19 16:00] VITALS: BP 125/78
[2017-10-19] MEDS: ABACAVIR SULFATE PO SCH (17:41)
[2017-10-19] MEDS: LAMIVUDINE PO SCH (17:41)
--- NOTE | 2017-10-19 17:57 | NUR ---
MS NR NOTES RECEIVED NEW ORDERS FROM FREDRICK MOREAU TO GIVE FLEET ENEMA , MAY GIVE 2-3 DOSES UNTIL PATIENT HAVE BOWEL MOVEMENT. PATIENT AGREED. NOTED AND CARRIED OUT.
[2017-10-19] MEDS ORDERED: NA PHOS,M-B/NA PHOS,DI-BA 1 EA ENEMA RC PRN (18:00)
--- NOTE | 2017-10-19 19:00 | NUR ---
MS RN NOTES PATIENT IN BED ALERT ORIENTED X 4.NO ACUTE DISTRESS NOTED. BREATHING UNLABORED. NO SOB NOTED.ON O2 @ 3LPM VIA NC. IV ACCESS PATENT AND INTACT, NO REDNESS NO SWELLING NOTED. ABDOMINAL SURGERY DRESSING INTACT, WITH ABDOMINAL BINDER, CLEAN AND DRY. DUE MEDICATIONS GIVEN, NO ASE NOTED. NEEDS ATTENDED AND ANTICIPATED, KEPT CLEAN AND DRY AND COMFORTABLE. FLEET ENEMA GIVEN X1 , HAD MEDIUM, SOFT BOWEL MOVEMENT. CALL LIGHT WITHIN REACH. SAFETY MEASURES IN PLACE. BED LOCKED, LOW POSITION. HOB ELEVATED. ENDORSED TO NIGHT NURSE FOR CONTINUITY OF CARE.
[2017-10-19 20:00] VITALS: BP 104/71
--- NOTE | 2017-10-19 20:05 | NUR ---
RN NOTES RECEIVED PATIENT AWAKE SITTING AT THE SIDE OF THE BED WATCHING TV. NO DISTRESS NOTED. BREATHING EVEN AND UNLABORED. O2 AT 3LPM VIA NASAL CANNULA WELL TOLERATED. ALERT AND ORIENTED, VERBALLY ABLE TO COMMUNICATE NEEDS. COMPLAINING OF ABDOMINAL PAIN, NOTED ABDOMEN TO BE HARD AND TENDER. VITAL SIGNS WNL. KEPT CLEAN AND DRY. WILL CONTINUE TO MONITOR.
[2017-10-19] MEDS: ENOXAPARIN SODIUM 40 MG/0.4 ML DISP.SYRIN SQ SCH (21:58)
[2017-10-19 22:00] VITALS: BP 104/71
[2017-10-20] MEDS: IV LR 1000 ML 1,000 ML IV PRN (00:45)
[2017-10-20] MEDS: IPRATROPIUM NEB FS 0.5 MG/2.5 ML AMPUL.NEB NEB SCH ×4 (01:30→19:30)
[2017-10-20] MEDS: MORPHINE SULFATE INJ 4 MG/ML DISP.SYRIN IV PRN ×4 (03:11→18:05)
[2017-10-20] MEDS: PIPERACILLIN /TAZOBACTAM 4.5 G in IV NS 0.9% 50 ML IV SCH ×3 (05:37→17:52)
[2017-10-20 06:16] LABS: BASOPHILS % (AUTO) 0.3 % (0.0-2.0); EOSINOPHILS % (AUTO) 4.7 % (0.0-6.0); HEMATOCRIT 38 % (39-51); HEMOGLOBIN 12.6 g/dL (13.5-17.5); LYMPHOCYTES # (AUTO) 2.1 /CMM (0.8-4.8); LYMPHOCYTES % (AUTO) 22.7 % (20.0-44.0); MEAN CORPUSCULAR HEMOGLOBIN 32 PG (26.0-33.0); MEAN CORPUSCULAR HGB CONC 33 g/dl (31.0-36.0); MEAN CORPUSCULAR VOLUME 97 fL (80-96); MONOCYTES # (AUTO) 1.1 /CMM (0.1-1.30); MONOCYTES % (AUTO) 12.2 % (2.0-12.0); NEUTROPHILS # (AUTO) 5.6 /CMM (1.8-8.9); NEUTROPHILS % (AUTO) 60.1 % (43.0-81.0); PLATELET COUNT (AUTO) 222 /CMM (150-450); RED BLOOD CELL COUNT(AUTO) 3.96 MIL/uL (4.5-6.0); WHITE BLOOD COUNT (AUTO) 9.3 K/uL (4.3-11.0)
[2017-10-20 06:26] VITALS: BP 127/80
[2017-10-20 06:28] LABS: CALCIUM, SERUM 8.5 mg/dL (8.5-10.1); CREATININE 0.8 mg/dL (0.6-1.3); MAGNESIUM 1.9 mg/dL (1.8-2.4); PHOSPHORUS 4.1 mg/dL (2.5-4.9); POTASSIUM 3.6 mmol/L (3.5-5.1)
--- NOTE | 2017-10-20 06:31 | NUR ---
RN NOTES PATIENT SLEEPING COMFORTABLY IN BED. NO SIGNIFICANT CHANGE OF CONDITION. VITAL SIGNS WNL. ADMINISTERED MORPHINE AT 2300 AND 0300 FOR ABDOMINAL PAIN, WITH HELP. BREATHING EVEN AND UNLABORED. KEPT CLEAN AND DRY. WILL ENDORSE TO AM SHIFT FOR CONTINUITY OF CARE.
[2017-10-20] MEDS: NITROGLYCERIN 30 GM TUBE TOP SCH ×3 (06:35→17:52)
[2017-10-20] MEDS: METOPROLOL TARTRATE 50 MG TABLET PO SCH ×3 (06:36→17:51)
[2017-10-20] MEDS: SENNOSIDES/DOCUSATE SODIUM 1 TAB TABLET PO SCH (08:13)
[2017-10-20] MEDS: SUCRALFATE 1 G/10 ML UDC GT SCH ×4 (08:13→21:43)
[2017-10-20] MEDS: ASPIRIN 81 MG TAB.CHEW PO SCH (08:13)
[2017-10-20] MEDS: PANTOPRAZOLE 40 MG VIAL IV SCH (08:13)
[2017-10-20] MEDS: POLYETHYLENE GLYCOL 3350 17 GM POWD.PACK PO SCH (08:13)
--- NOTE | 2017-10-20 11:28 | NUR ---
PT STATED THAT HE HAS BEEN PASSING GAS NOTIFIED DR DELA CRUZ, WAITING FOR CALL BACK. WILL CONT TO MONITOR.
[2017-10-20] MEDS: MENTHOL/CETYLPYRD (CEPACOL) 1 LOZ LOZENGE PO PRN (12:23)
[2017-10-20] MEDS: GUAIFENESIN 300 MG/15 ML UDC PO PRN ×2 (12:34→18:04)
[2017-10-20] MEDS: LAMIVUDINE PO SCH (18:00)
[2017-10-20] MEDS: ABACAVIR SULFATE PO SCH (18:00)
--- NOTE | 2017-10-20 18:36 | NUR ---
PT HAS BEEN SNACKING ON ICE CHIPS, REMINDED PT THAT HIS ORDER IS ONLY SIPS OF WATER WITH MEDICATIONS AND NOTIFIED HEEL SHAVER NOT TO GIVE ICE CHIPS CONSTANTLY. NOTED PT'S ABDOMEN TO BE DISTENDED. PT HAS BEEN PASSING GAS AND HAVING BLACK LIQUID BOWEL MOVEMENT. MEDICATED WITH MORPHINE 4MG IV ORDERED AND ROBITUSSIN FOR COUGH. ENCOURAGED TO USE IS, ENCOURAGED TO AMBULATE ALONG HALLWAY. BED LOW AND LOCKED. CALL LIGHT WITHIN REACHED. WILL CONT TO MONITOR.
[2017-10-20 20:00] VITALS: BP 140/80
--- NOTE | 2017-10-20 20:15 | NUR ---
[facility] RN OPENING NOTES RECEIVED REPORT FROM CRISTIAN ELIAS. PATIENT A/A/O X4, ABLE TO MAKE NEEDS KNOWN. BREATHING EVEN & UNLABORED, TOLERATING O2 @ 2-3LPM VIA NC. DENIES ANY SOB OR DIFFICULTY BREATHING. PULSES PRESENT & BOUNDING. SKIN WARM, DRY & INTACT W/ SURGICAL DRESSINGS CDI & ABDOMINAL BINDER APPLIED. RIGHT HAND IV #18 INTACT & PATENT W/ DRESSING CDI & IVF LR INFUSING WELL 40 ML/HR. PULSES PRESENT & BOUNDING. SKIN WARM, DRY & INTACT W/ SURGICAL DRESSINGS CDI & ABDOMINAL BINDER KEPT IN PLACE. DENIES ANY PAIN OR DISCOMFORT @ THIS TIME. SAFETY MEASURES IN PLACE & INSTRUCTED TO USE CALL LIGHT FOR ASSISTANCE. WILL CONTINUE TO MONITOR. Addendum: 10/20/17 at 2055 by BENJIE HERNANDEZ RN CRIME SCENE INVESTIGATOR OPENING NOTES*
[2017-10-20] MEDS: ENOXAPARIN SODIUM 40 MG/0.4 ML DISP.SYRIN SQ SCH (21:44)
[2017-10-21] MEDS: PIPERACILLIN /TAZOBACTAM 4.5 G in IV NS 0.9% 50 ML IV SCH ×2 (00:50→05:23)
[2017-10-21] MEDS: METOPROLOL TARTRATE 50 MG TABLET PO SCH ×4 (00:50→17:12)
[2017-10-21] MEDS: NITROGLYCERIN 30 GM TUBE TOP SCH ×4 (00:51→17:17)
[2017-10-21] MEDS: GUAIFENESIN 300 MG/15 ML UDC PO PRN ×3 (00:53→17:21)
[2017-10-21] MEDS: MORPHINE SULFATE INJ 4 MG/ML DISP.SYRIN IV PRN ×5 (00:53→18:40)
[2017-10-21] MEDS: IPRATROPIUM NEB FS 0.5 MG/2.5 ML AMPUL.NEB NEB SCH ×4 (01:30→19:28)
[2017-10-21 04:00] VITALS: BP 126/72
[2017-10-21] MEDS: IV LR 1000 ML 1,000 ML IV PRN (05:23)
--- NOTE | 2017-10-21 07:38 | NUR ---
MS RN OPENING NOTES RECEIVED PATIENT IN STABLE CONDITION. IN NO APPARENT DISTRESS. BEDSIDE RAILS ARE UPX2. BED IS LOCKED AND LOWERED. CALL LIGHT IS WITHIN REACH. IV LINE IS INTACT AND PATENT. WILL CONTINUE TO MONITOR.
[2017-10-21 08:00] VITALS: BP 123/69
[2017-10-21] MEDS: SUCRALFATE 1 G/10 ML UDC GT SCH ×4 (08:56→21:12)
[2017-10-21] MEDS: POLYETHYLENE GLYCOL 3350 17 GM POWD.PACK PO SCH (08:57)
[2017-10-21] MEDS: ASPIRIN 81 MG TAB.CHEW PO SCH (08:57)
[2017-10-21] MEDS: SENNOSIDES/DOCUSATE SODIUM 1 TAB TABLET PO SCH (08:57)
[2017-10-21] MEDS: PANTOPRAZOLE 40 MG VIAL IV SCH (08:57)
--- NOTE | 2017-10-21 11:30 | NUR ---
NOTIFIED DR. ALCALA ABOUT PATIENTS NPO STATUS. ASKED DR. ALCALA IF PATIENT'S DIET SHOULD BE ADVANCED OR REMAIN NPO. AWAITING ORDERS.
[2017-10-21 16:00] VITALS: BP 127/65
[2017-10-21] MEDS: ABACAVIR SULFATE PO SCH (17:18)
[2017-10-21] MEDS: LAMIVUDINE PO SCH (17:18)
--- NOTE | 2017-10-21 18:33 | NUR ---
MS RN CLOSING NOTES PATIENT IS RESTING IN BED. IN NO APPARENT DISTRESS. BEDSIDE RAILS ARE UPX2. BED IS LOCKED AND LOWERED. CALL LIGHT IS WITHIN REACH. IV LINE IS INTACT AND PATENT. ALL NEEDS WERE MET. WILL ENDORSE CARE TO FILTER TANK TENDER HELPER HEAD NURSE FOR INDIRA.
[2017-10-21 20:00] VITALS: BP 144/85
[2017-10-21] MEDS: ENOXAPARIN SODIUM 40 MG/0.4 ML DISP.SYRIN SQ SCH (21:21)
[2017-10-22] MEDS: ACETAMINOPHEN 650 MG/20.3 ML UDC GT PRN (00:10)
[2017-10-22] MEDS: GUAIFENESIN 300 MG/15 ML UDC PO PRN ×2 (00:10→22:11)
[2017-10-22] MEDS: METOPROLOL TARTRATE 50 MG TABLET PO SCH ×4 (00:11→18:18)
[2017-10-22] MEDS: NITROGLYCERIN 30 GM TUBE TOP SCH ×4 (00:11→18:19)
[2017-10-22] MEDS: MORPHINE SULFATE INJ 4 MG/ML DISP.SYRIN IV PRN ×4 (00:15→17:36)
[2017-10-22] MEDS: IPRATROPIUM NEB FS 0.5 MG/2.5 ML AMPUL.NEB NEB SCH ×4 (01:28→19:30)
[2017-10-22 04:00] VITALS: BP 126/75
[2017-10-22 04:04] VITALS: BP 126/75
[2017-10-22] MEDS: IV LR 1000 ML 1,000 ML IV PRN (04:46)
[2017-10-22 08:00] VITALS: BP 132/70
[2017-10-22] MEDS: POLYETHYLENE GLYCOL 3350 17 GM POWD.PACK PO SCH (08:04)
[2017-10-22] MEDS: SENNOSIDES/DOCUSATE SODIUM 1 TAB TABLET PO SCH (08:04)
[2017-10-22] MEDS: ASPIRIN 81 MG TAB.CHEW PO SCH (08:17)
[2017-10-22] MEDS: PANTOPRAZOLE 40 MG VIAL IV SCH (08:17)
[2017-10-22] MEDS: SUCRALFATE 1 G/10 ML UDC GT SCH ×4 (08:17→21:55)
--- NOTE | 2017-10-22 08:30 | NUR ---
Nursing Initial Note Received patient from warehouse supervisor 3rd shift RNZander. Patient is alert and oriented. Patient knows he is scheduled for Small Bowel Follow Through test today. IV right forearm infusing IV fluid with no sign of infiltration. Patient on room air with no sign of respiratory distress.
[2017-10-22] MEDS ORDERED: DIATR MEGLU/DIATRIZOATE SODIUM 120 ML BOTTLE (GASTROGRAPHIN) ONE (09:55)
--- NOTE | 2017-10-22 12:23 | NUR ---
1000: Patient taken to radiology for Small Bowel Follow Through test. 1220: I called radiology to ask on patient's status. Radiology said they are taking the last image and bpateitn should be done in 15 minutes unless there is more test the MD wants done
--- NOTE | 2017-10-22 13:29 | NUR ---
Patient returned from radiology in stable condition on oxygen. Complained of pain medicated with 4mg morphine.
[2017-10-22 16:00] VITALS: BP_SYST 143; BP_SYST 43; BP_DIAS 81
[2017-10-22] MEDS: LAMIVUDINE PO SCH (17:36)
[2017-10-22] MEDS: ABACAVIR SULFATE PO SCH (17:36)
--- NOTE | 2017-10-22 19:24 | NUR ---
Report given to heel packer RNZander. Patient in stable condition. Continues on oxygen via NC. Patient has a visitor who brought him CPAP. Small Bowel Follow Through result still pending.
[2017-10-22 20:00] VITALS: BP 135/70
[2017-10-22] MEDS: ENOXAPARIN SODIUM 40 MG/0.4 ML DISP.SYRIN SQ SCH (21:56)
[2017-10-23] MEDS: NITROGLYCERIN 30 GM TUBE TOP SCH ×4 (00:11→17:48)
[2017-10-23] MEDS: METOPROLOL TARTRATE 50 MG TABLET PO SCH ×4 (00:11→17:41)
[2017-10-23] MEDS: IPRATROPIUM NEB FS 0.5 MG/2.5 ML AMPUL.NEB NEB SCH ×4 (01:30→19:30)
[2017-10-23 04:00] VITALS: BP 126/64
[2017-10-23] MEDS: GUAIFENESIN 300 MG/15 ML UDC PO PRN ×4 (04:00→22:39)
--- NOTE | 2017-10-23 07:29 | NUR ---
PT REFUSED HHN TX. FOUND @ RA WITH SPO2 96%; 68 HR. Addendum: 10/23/17 at 0729 by CHRISTINE HARDWICK RT Amended: Links added.
[2017-10-23 08:00] VITALS: BP 129/79
--- NOTE | 2017-10-23 08:05 | NUR ---
JASON RN NOTES RECEIVED PATIENT'S REPORT FROM PM NURSE. PT IS A/OX4. SITTING IN BED. NO SOB, NO DISTRESS NOTED AT THIS TIME, COMPLAINS OF PAIN 2/10 WITH COUGH, ASKED FOR COUGH MEDICATION, WILL BE PROVIDED TIMELY. PT ON RA WITH SATURATION OF 96%.PATIENT HAS ABDOMINAL BINDER IN PLACE . IV LINE LEFT HAND 22G WAS INTACT, PATIENT WITH IV FLUIDS LR @40ML/HR. TALKED TO DR ALCALA FOR PT'S DIET ADVANCEMENT. ALL SAFETY MEASURES ARE IMPLEMENTED, BED IN LOW, LOCKED POSITION, CALL LIGHT IN REACH. WILL CONT. TO MONITOR.
[2017-10-23] MEDS: PANTOPRAZOLE 40 MG VIAL IV SCH (08:37)
[2017-10-23] MEDS: SUCRALFATE 1 G/10 ML UDC GT SCH ×4 (08:37→21:27)
[2017-10-23] MEDS: ASPIRIN 81 MG TAB.CHEW PO SCH (08:37)
[2017-10-23] MEDS: POLYETHYLENE GLYCOL 3350 17 GM POWD.PACK PO SCH (09:00)
[2017-10-23] MEDS: SENNOSIDES/DOCUSATE SODIUM 1 TAB TABLET PO SCH (09:00)
[2017-10-23] MEDS: ACETAMINOPHEN 650 MG/20.3 ML UDC GT PRN (12:36)
[2017-10-23] MEDS: IV LR 1000 ML 1,000 ML IV PRN (12:49)
[2017-10-23 16:00] VITALS: BP 132/81
--- NOTE | 2017-10-23 17:27 | NUR ---
JASON RN NOTES PATIENT'S WOUND DRESSINGS WERE CHANGED BY PATIENT'S REQUEST. STERIL TECHNIQUES USED.
[2017-10-23] MEDS: ABACAVIR SULFATE PO SCH (17:42)
[2017-10-23] MEDS: LAMIVUDINE PO SCH (17:42)
--- NOTE | 2017-10-23 18:42 | NUR ---
JASON RN NOTES PATIENT HAD HIS FIRST SOFT DIET FOOD AND TOLERATING WELL. NO COMPLAINS OF NAUSEA AND VOMITING OR ANY DISCOMFORT.WILL CONT. TO MONITOR.
[2017-10-23] MEDS: MORPHINE SULFATE INJ 4 MG/ML DISP.SYRIN IV PRN ×2 (19:37→22:39)
[2017-10-23 20:00] VITALS: BP_SYST 120; BP_SYST 128; BP_DIAS 73; BP_DIAS 84
[2017-10-23] MEDS: ENOXAPARIN SODIUM 40 MG/0.4 ML DISP.SYRIN SQ SCH (21:29)
[2017-10-24] VITALS: BP 128/84
[2017-10-24] MEDS: METOPROLOL TARTRATE 50 MG TABLET PO SCH ×3 (00:11→12:54)
[2017-10-24] MEDS: NITROGLYCERIN 30 GM TUBE TOP SCH ×3 (00:12→12:54)
[2017-10-24] MEDS: IPRATROPIUM NEB FS 0.5 MG/2.5 ML AMPUL.NEB NEB SCH ×3 (01:30→13:30)
[2017-10-24] MEDS: MORPHINE SULFATE INJ 4 MG/ML DISP.SYRIN IV PRN ×2 (04:04→10:45)
[2017-10-24 06:36] VITALS: BP 124/79
--- NOTE | 2017-10-24 07:45 | NUR ---
MS RN NOTE: RECEIVED PATIENT SEATING UPRIGHT ON THE EDGE OF THE BED, AWAKE, ALERT AND ABLE TO MAKE HIS NEEDS KNOWN. RESPIRATION IS EVEN AND UNLABORED SATURATING 98% IN ROOM AIR. HOB ELEVATED. DENIED ANY PAIN AT THIS TIME. PER PATIENT HIS TOLERABLE PAIN LEVEL WAS AT LEAST 3/10. ABLE TO AMBULATE WITH STEADY GAIT. WITH BATHROOM PRIVILEGE. BED IN LOWEST POSITION. LOCKED AT ALL TIMES. CALL LIGHT WITHIN REACH. NEEDS ANTICIPATED.
[2017-10-24 08:00] VITALS: BP 125/74
[2017-10-24] MEDS: PANTOPRAZOLE 40 MG VIAL IV SCH (08:57)
[2017-10-24] MEDS: ASPIRIN 81 MG TAB.CHEW PO SCH (08:57)
[2017-10-24] MEDS: SUCRALFATE 1 G/10 ML UDC GT SCH ×2 (08:57→12:47)
[2017-10-24] MEDS: SENNOSIDES/DOCUSATE SODIUM 1 TAB TABLET PO SCH (08:57)
--- NOTE | 2017-10-24 09:08 | NUR ---
MS RN NOTE: SPOKE WITH DR. CISNEROS AND CLARIFIED WITH HIM THE DAILY ABG ORDER FOR THE PATIENT. PATIENT HAS BEEN SATURATING 98% IN ROOM AIR AND DENIED HAVING DIFFICULTY BREATHING. MD WITH ORDER TO DC ALL DAILY ABGS. NOTED AND CARRIED OUT. PATIENT MADE AWARE.
[2017-10-24] MEDS: POLYETHYLENE GLYCOL 3350 17 GM POWD.PACK PO SCH (09:10)
[2017-10-24] MEDS ORDERED: HYDR-3972 PO (11:07)
[2017-10-24 12:00] VITALS: BP 132/81
[2017-10-24] MEDS: IV LR 1000 ML 1,000 ML IV PRN (12:47)
--- NOTE | 2017-10-24 14:44 | NUR ---
MS RN NOTE: SPOKE WITH MARCO, FRIEND OF THE PATIENT AND MADE HIM AWARE THAT THE PATIENT IS READY TO BE DISCHARGE TODAY. PER MARCO, HE WILL PICK-UP THE PATIENT AFTER DOING SOME ERRANDS.
[2017-10-24 16:00] VITALS: BP 123/70
--- NOTE | 2017-10-24 16:30 | NUR ---
MS RN NOTE: SPOKE WITH DR. ALCLAA AND ACCORDING TO MD, HE WANTED THE PATIENT TO FOLLOW-UP ON HIS CLINIC TO GET HIS ABDOMINAL AREA CHRISTIAN REMOVED BY NEXT WEEK OR PATIENT CAN GO TO [facility] FOR THE CHRISTIAN TO BE REMOVED. PER PATIENT, HE WOULD HAVE HIS FRIEND TAKE HIM TO DR. ALCALA'S OFFICE. EXIT CARE WAS DONE. DISCHARGE INSTRUCTION WAS PROVIDED. HANDED TO THE PATIENT HIS PRESCRIPTION FOR [facility] AND INFORMED THE PATIENT THAT HE CAN ALWAYS COME AND FOLLOW-UP AT THE [facility] BECAUSE PER PATIENT HE DOES NOT HAVE ANY PRIMARY DOCTOR TO SEE AND HE WANTED TO SEE THE DOCTORS THAT CHECKED HIM DURING HIS HOSPITALIZATION HERE. PATIENT HAS NO QUESTION REGARDING HIS DISCHARGE. PICTURE WAS TAKEN ON HIS ABDOMINAL AREA WITH 24 INTACT CHRISTIAN. NO RESTRICTIONS REGARDING THE CARE OF THE ABDOMINAL CHRISTIAN PER DR. ALCALA. PATIENT CAN SHOWER TOLERATED.
--- NOTE | 2017-10-24 17:00 | NUR ---
MS RN NOTE: PATIENT WAS DISCHARGED TO HOME TODAY AND ALL BELONGINGS AND PAPERWORK WERE RELEASED WITH HIM. PATIENT WAS PICKED-UP BY HIS FRIEND MARCO. PATIENT WAS ESCORTED TO THE HOSPITAL MAIN LOBBY VIA WHEELCHAIR BY A AIR [employer]CE PILOT.
== END 2017-10-24 17:00 | disposition home or self-care (01) | DRG 326 ==
LOC: ER 01:11 → TELE1 03:10 → ICU 12:57 → TELE-TD 10-17 17:41 → MEDSG1 10-18 12:35
PROC: 0BUT0JZ Supplement Diaphragm with Synthetic Substitute, Open Approach (ICD-10-PCS; 2017-10-14)
PROC: 0DNW4ZZ Release Peritoneum, Percutaneous Endoscopic Approach (ICD-10-PCS; 2017-10-14)
PROC: 0WUF4JZ Supplement Abdominal Wall with Synthetic Substitute, Percutaneous Endoscopic Approach (ICD-10-PCS; principal; 2017-10-14 08:05)
DX: K43.6 Other and unspecified ventral hernia with obstruction, without gangrene (principal); J96.02 Acute respiratory failure with hypercapnia; J96.01 Acute respiratory failure with hypoxia; N17.0 Acute kidney failure with tubular necrosis; I21.4 Non-ST elevation (NSTEMI) myocardial infarction; E87.1 Hypo-osmolality and hyponatremia; E87.2 Acidosis; J90 Pleural effusion, not elsewhere classified; I42.9 Cardiomyopathy, unspecified; E66.01 Morbid (severe) obesity due to excess calories; E83.42 Hypomagnesemia; E87.6 Hypokalemia; G47.30 Sleep apnea, unspecified; Z68.32 Body mass index [BMI] 32.0-32.9, adult; I10 Essential (primary) hypertension; D72.829 Elevated white blood cell count, unspecified; K42.9 Umbilical hernia without obstruction or gangrene; K66.0 Peritoneal adhesions (postprocedural) (postinfection); E11.9 Type 2 diabetes mellitus without complications; Z79.84 Long term (current) use of oral hypoglycemic drugs
CPT/HCPCS: 31720; 36415; 36600; 71045-TC; 74250-TC; 80048-TC; 80053-TC; 80061-TC; 80076-TC; 81000-TC; 82803-TC; 82962-TC; 83605-TC; 83690-TC; 83735-TC; 83880; 84100-TC; 84439-TC; 84443-TC; 84484-TC; 85025-TC; 85730-TC; 86850-TC; 87040-TC; 87081-TC; 88304-TC; 93307-TC; 94002-TC; 94003-TC; 94762-TC; 94799-TC; A4216; A4606; A6253; A6402; C9113; J0330; J0690; J1170; J1650; J2270; J2405; J2543; J3010; J3475; J3480; J3490; J7030; J7040; J7050; J7060; J7120; Q9963; Z7610

== ENCOUNTER 2017-12-26 10:49 | Outpatient (CLI) | payer MEDICARE, OTHER ==
[~2017-12-26 10:49] MED LIST: ABAC1TAB3 PO; ALFU10TA10 PO; CARV25TA2 PO; DAPA10TA PO; DUTA0.5C PO; GABA-534 PO; GLIP5TAB13 PO; HYDR-3972 PO; HYDR25TA4 PO; LOSA50TA21 PO; NEVI400T4 PO; OMEP40CA37 PO; PRAV10TA40 PO
[2017-12-26 11:37] LABS: BASOPHILS % (AUTO) 0.5 % (0.0-2.0); EOSINOPHILS % (AUTO) 9.2 % (0.0-6.0); HEMATOCRIT 46 % (39-51); HEMOGLOBIN 14.8 g/dL (13.5-17.5); LYMPHOCYTES # (AUTO) 2.9 /CMM (0.8-4.8); LYMPHOCYTES % (AUTO) 35.1 % (20.0-44.0); MEAN CORPUSCULAR HGB CONC 32 g/dl (31.0-36.0); MEAN CORPUSCULAR VOLUME 95 fL (80-96); MONOCYTES # (AUTO) 0.9 /CMM (0.1-1.30); MONOCYTES % (AUTO) 10.7 % (2.0-12.0); NEUTROPHILS # (AUTO) 3.7 /CMM (1.8-8.9); NEUTROPHILS % (AUTO) 44.5 % (43.0-81.0); PLATELET COUNT (AUTO) 200 /CMM (150-450); RDW COEFFICIENT OF VARIATION 15.1 (11.5-15.0); RED BLOOD CELL COUNT(AUTO) 4.82 MIL/uL (4.5-6.0); WHITE BLOOD COUNT (AUTO) 8.3 K/uL (4.3-11.0)
[2017-12-26 11:42] LABS: BILIRUBIN,DIRECT 0.1 mg/dL (0.0-0.2); BILIRUBIN,TOTAL 0.3 mg/dL (0.2-1.0); CALCIUM, SERUM 9.4 mg/dL (8.5-10.1); CREATININE 0.8 mg/dL (0.6-1.3); POTASSIUM 3.7 mmol/L (3.5-5.1); TOTAL PROTEIN, SERUM 8.2 g/dL (6.4-8.2)
[2017-12-26 11:52] LABS: THYROID STIMULATING HORMONE 0.74 uIU/mL (0.358-3.74)
== END 2017-12-26 23:59 | disposition home or self-care (01) ==
LOC: LAB 10:49
PROVIDERS: ATTEND Internal Medicine
DX: Z00.01 Encounter for general adult medical examination with abnormal findings (principal); E11.9 Type 2 diabetes mellitus without complications; I10 Essential (primary) hypertension; B20 Human immunodeficiency virus [HIV] disease
CPT/HCPCS: 36415; 80048-TC; 80061-TC; 80076-TC; 82728-TC; 83540-TC; 84439-TC; 84443-TC; 85025-TC

== ENCOUNTER 2018-01-02 12:12 | Outpatient (CLI) | payer MEDICARE, OTHER ==
[2018-01-02 12:26] VITALS: BP 115/74
== END 2018-01-02 23:59 | disposition home or self-care (01) ==
LOC: MSC 12:12
PROVIDERS: ATTEND Internal Medicine
DX: Z09 Encounter for follow-up examination after completed treatment for conditions other than malignant neoplasm (principal); Z98.890 Other specified postprocedural states; I42.9 Cardiomyopathy, unspecified; E11.9 Type 2 diabetes mellitus without complications; I10 Essential (primary) hypertension; M54.30 Sciatica, unspecified side; M54.9 Dorsalgia, unspecified; E78.5 Hyperlipidemia, unspecified

== ENCOUNTER 2018-03-16 13:08 | Outpatient (CLI) | payer MEDICARE, OTHER ==
[~2018-03-16 13:08] MED LIST changes: -LOSA50TA21 PO; +LOSA50TA39 PO
== END 2018-03-16 23:59 | disposition home or self-care (01) ==
LOC: MSC 13:08
PROVIDERS: ATTEND Internal Medicine
DX: I42.9 Cardiomyopathy, unspecified (principal); E11.9 Type 2 diabetes mellitus without complications; I10 Essential (primary) hypertension; M54.40 Lumbago with sciatica, unspecified side; E78.5 Hyperlipidemia, unspecified; L72.3 Sebaceous cyst; Z98.890 Other specified postprocedural states

== ENCOUNTER 2018-07-06 11:36 | Outpatient (CLI) | payer MEDICARE, OTHER ==
[2018-07-06 12:00] VITALS: BP 143/81
== END 2018-07-06 23:59 | disposition home or self-care (01) ==
LOC: MSC 11:36
PROVIDERS: ATTEND Nurse Practitioner Acute Care
DX: E11.42 Type 2 diabetes mellitus with diabetic polyneuropathy (principal); I10 Essential (primary) hypertension; E78.5 Hyperlipidemia, unspecified; K21.9 Gastro-esophageal reflux disease without esophagitis; M54.30 Sciatica, unspecified side; Z86.79 Personal history of other diseases of the circulatory system

== ENCOUNTER 2019-04-16 10:38 | Outpatient (CLI) | payer MEDICARE, OTHER ==
[~2019-04-16 10:38] MED LIST changes: -NEVI400T4 PO; +NEVI400T5 PO; +OMEP40CA13 PO; -OMEP40CA37 PO
== END 2019-04-16 23:59 | disposition home or self-care (01) ==
LOC: MSC 10:38
PROVIDERS: ATTEND Internal Medicine
DX: M76.891 Other specified enthesopathies of right lower limb, excluding foot (principal); E11.9 Type 2 diabetes mellitus without complications; Z79.84 Long term (current) use of oral hypoglycemic drugs; Z86.79 Personal history of other diseases of the circulatory system; I10 Essential (primary) hypertension; M54.30 Sciatica, unspecified side; E78.5 Hyperlipidemia, unspecified; L72.3 Sebaceous cyst; K21.9 Gastro-esophageal reflux disease without esophagitis; Z79.1 Long term (current) use of non-steroidal anti-inflammatories (NSAID)

== ENCOUNTER 2020-03-12 16:06 | Outpatient (CLI) | payer MEDICARE, OTHER | END 2020-03-12 23:59 | disposition home or self-care (01) | LOC: MSC 16:06 | PROVIDERS: ATTEND Internal Medicine | DX: M76.51 Patellar tendinitis, right knee (principal); E11.9 Type 2 diabetes mellitus without complications; Z79.84 Long term (current) use of oral hypoglycemic drugs; Z86.79 Personal history of other diseases of the circulatory system; I10 Essential (primary) hypertension; M54.30 Sciatica, unspecified side; E78.5 Hyperlipidemia, unspecified; L72.3 Sebaceous cyst; K21.9 Gastro-esophageal reflux disease without esophagitis ==

== ENCOUNTER 2020-07-18 10:41 | Outpatient (CLI) | payer MEDICARE, OTHER | END 2020-07-18 23:59 | disposition home or self-care (01) | LOC: MSC 10:41 | PROVIDERS: ATTEND Internal Medicine | DX: M76.891 Other specified enthesopathies of right lower limb, excluding foot (principal); E11.9 Type 2 diabetes mellitus without complications; Z79.84 Long term (current) use of oral hypoglycemic drugs; I42.9 Cardiomyopathy, unspecified; I10 Essential (primary) hypertension; M54.30 Sciatica, unspecified side; E78.5 Hyperlipidemia, unspecified; L72.3 Sebaceous cyst; K21.9 Gastro-esophageal reflux disease without esophagitis; Z79.1 Long term (current) use of non-steroidal anti-inflammatories (NSAID); Z79.899 Other long term (current) drug therapy ==

== ENCOUNTER 2020-11-06 09:37 | Outpatient (CLI) | payer MEDICARE, OTHER ==
[~2020-11-06 09:37] MED LIST changes: -OMEP40CA13 PO; +OMEP40CA21 PO
[2020-11-06 10:39] LABS: BASOPHILS % (AUTO) 0.6 % (0.0-2.0); EOSINOPHILS % (AUTO) 4.8 % (0.0-6.0); HEMATOCRIT 50 % (39-51); HEMOGLOBIN 16.7 g/dL (13.5-17.5); LYMPHOCYTES # (AUTO) 2.5 K/uL (0.8-4.8); LYMPHOCYTES % (AUTO) 30.9 % (20.0-44.0); MEAN CORPUSCULAR HGB CONC 33 g/dl (31.0-36.0); MEAN CORPUSCULAR VOLUME 96 fL (80-96); MONOCYTES # (AUTO) 0.8 K/uL (0.1-1.30); MONOCYTES % (AUTO) 9.8 % (2.0-12.0); NEUTROPHILS # (AUTO) 4.3 K/uL (1.8-8.9); NEUTROPHILS % (AUTO) 53.9 % (43.0-81.0); PLATELET COUNT (AUTO) 184 K/uL (150-450); RED BLOOD CELL COUNT(AUTO) 5.23 MIL/uL (4.5-6.0); WHITE BLOOD COUNT (AUTO) 7.9 K/uL (4.3-11.0)
[2020-11-06 12:00] LABS: PROSTATE SPECIFIC ANTIGEN SCR 1.26 ng/mL (0.00-4.00)
[2020-11-06 12:14] LABS: ALBUMIN 4.3 g/dL (3.4-5.0); BILIRUBIN,TOTAL 0.7 mg/dL (0.2-1.0); CALCIUM, SERUM 9.5 mg/dL (8.5-10.1); POTASSIUM 3.9 mmol/L (3.5-5.1); TOTAL PROTEIN, SERUM 8.4 g/dL (6.4-8.2)
== END 2020-11-06 23:59 | disposition home or self-care (01) ==
LOC: LAB 09:37
PROVIDERS: ATTEND Internal Medicine
DX: Z00.00 Encounter for general adult medical examination without abnormal findings (principal); E11.9 Type 2 diabetes mellitus without complications
CPT/HCPCS: 36415; 80053-TC; 80061-TC; 82306; 82607-TC; 82728-TC; 83540-TC; 84153-TC; 84439-TC; 85025-TC; 87806

== ENCOUNTER 2020-11-26 12:29 | Outpatient (CLI) | payer MEDICARE, OTHER | END 2020-11-26 23:59 | disposition home or self-care (01) | LOC: MSC 12:29 | PROVIDERS: ATTEND Internal Medicine | DX: E11.9 Type 2 diabetes mellitus without complications (principal); Z79.84 Long term (current) use of oral hypoglycemic drugs; I10 Essential (primary) hypertension; M76.891 Other specified enthesopathies of right lower limb, excluding foot; I42.9 Cardiomyopathy, unspecified; M54.30 Sciatica, unspecified side; E78.5 Hyperlipidemia, unspecified; L72.3 Sebaceous cyst; Z79.1 Long term (current) use of non-steroidal anti-inflammatories (NSAID) ==

== ENCOUNTER 2021-09-03 11:49 | Emergency (ER) | payer MEDICARE, OTHER ==
[~2021-09-03] VITALS: Ht 167.6 cm; Wt 97.1 kg
--- NOTE | 2021-09-03 12:02 | NUR ---
TO ER BED 1, BIBFAMIGILMA C/O DIZZINESS X1YEAR WORST TODAY WHEN STARTED TAKING INSULIN, AAOX3, BREATHING EVEN AND NON LABORED, CONNECTED TO MONITOR
[2021-09-03] MEDS ORDERED: ONDANSETRON 4 MG TAB.RAPDIS ONE (12:11)
[2021-09-03] MEDS ORDERED: MECLIZINE HCL 25 MG TABLET ONE (12:11)
--- NOTE | 2021-09-03 12:18 | NUR ---
PRESERVATIONIST AT BEDSIDE FOR BLOOD DRAW
--- NOTE | 2021-09-03 12:22 | NUR ---
FRIEND MARCO MANRIQUE [phone]
--- NOTE | 2021-09-03 12:23 | NUR ---
TAKEN TO CT VIA [facility]
[2021-09-03 12:29] LABS: BASOPHILS % (AUTO) 0.7 % (0.0-2.0); EOSINOPHILS % (AUTO) 3.8 % (0.0-6.0); HEMATOCRIT 45 % (39-51); HEMOGLOBIN 15.3 g/dL (13.5-17.5); LYMPHOCYTES # (AUTO) 1.9 K/uL (0.8-4.8); LYMPHOCYTES % (AUTO) 27.2 % (20.0-44.0); MEAN CORPUSCULAR HGB CONC 34 g/dl (31.0-36.0); MEAN CORPUSCULAR VOLUME 95 fL (80-96); MONOCYTES # (AUTO) 0.6 K/uL (0.1-1.30); MONOCYTES % (AUTO) 9.2 % (2.0-12.0); NEUTROPHILS # (AUTO) 4.1 K/uL (1.8-8.9); NEUTROPHILS % (AUTO) 59.1 % (43.0-81.0); PLATELET COUNT (AUTO) 173 K/uL (150-450); RED BLOOD CELL COUNT(AUTO) 4.77 MIL/uL (4.5-6.0)
[2021-09-03] MEDS ORDERED: ONDANSETRON 4 MG TAB.RAPDIS PO ONE (12:30)
[2021-09-03] MEDS ORDERED: MECLIZINE HCL 12.5 MG TABLET PO ONE (12:30)
[2021-09-03 12:36] LABS: CARBON DIOXIDE 27 mmol/L (21-32); CHLORIDE 104 mmol/L (98-107); CREATININE 0.8 mg/dL (0.6-1.3); GLUCOSE 173 mg/dL (74-106); SODIUM SERUM 143 mmol/L (136-145); UREA NITROGEN, BLOOD 11 mg/dL (7-18)
[2021-09-03 12:41] LABS: ALANINE AMINOTRANSFERASE 35 U/L (12-78); ALBUMIN 4.2 g/dL (3.4-5.0); ALKALINE PHOSPHATASE 53 U/L (46-116); ASPARTATE AMINOTRANSFERASE 22 U/L (15-37); BILIRUBIN,DIRECT 0.1 mg/dL (0.0-0.2); BILIRUBIN,TOTAL 0.3 mg/dL (0.2-1.0)
[2021-09-03 12:49] LABS: CALCIUM, SERUM 9.2 mg/dL (8.5-10.1)
[2021-09-03] MEDS ORDERED: MECL-159 PO (13:08)
--- NOTE | 2021-09-03 13:30 | NUR ---
Patient discharged to home in stable condition. Written and verbal after care instructions given. Patient verbalizes understanding of instruction.
[2021-09-03 13:31] VITALS: BP 138/86
== END 2021-09-03 13:32 | disposition home or self-care (01) ==
LOC: ER 11:56
DX: R42 Dizziness and giddiness (principal); I10 Essential (primary) hypertension; E11.9 Type 2 diabetes mellitus without complications; Z88.8 Allergy status to other drugs, medicaments and biological substances; Z79.899 Other long term (current) drug therapy; Z79.84 Long term (current) use of oral hypoglycemic drugs
CPT/HCPCS: 36415; 70450; 80048; 80076; 84484; 85025; 93005; 99285; J8597; Q0162

== ENCOUNTER 2022-11-23 05:11 | Inpatient (IN) | payer MEDICARE, OTHER ==
[~2022-11-23] VITALS: Ht 167.6 cm; Wt 95.7 kg
[~2022-11-23 05:11] MED LIST changes: +MECL-159 PO
[2022-11-23] MEDS ORDERED: KETOROLAC TROMETHAMINE 15 MG/ML VIAL ONE (06:25)
[2022-11-23] MEDS ORDERED: ONDANSETRON HCL/PF 4 MG/2 ML VIAL ONE (06:25)
[2022-11-23] MEDS ORDERED: IV NS 0.9% 500 ML BAG IV ONE (06:30)
[2022-11-23] MEDS ORDERED: KETOROLAC TROMETHAMINE INJ 30 MG/ML VIAL IV ONE (06:30)
[2022-11-23] MEDS ORDERED: ONDANSETRON HCL/PF 4 MG/2 ML VIAL IVP ONE (06:30)
[2022-11-23 06:52] LABS: BASOPHILS % (AUTO) 0.4 % (0.0-2.0); EOSINOPHILS # (AUTO) 0.1 K/uL (0.0-0.7); EOSINOPHILS % (AUTO) 1.4 % (0.0-6.0); HEMATOCRIT 49 % (39-51); HEMOGLOBIN 16.3 g/dL (13.5-17.5); LYMPHOCYTES # (AUTO) 1.2 K/uL (0.8-4.8); LYMPHOCYTES % (AUTO) 12.2 % (20.0-44.0); MEAN CORPUSCULAR HEMOGLOBIN 32 PG (26.0-33.0); MEAN CORPUSCULAR HGB CONC 33 g/dl (31.0-36.0); MEAN CORPUSCULAR VOLUME 95 fL (80-96); MONOCYTES # (AUTO) 0.7 K/uL (0.1-1.30); NEUTROPHILS # (AUTO) 7.7 K/uL (1.8-8.9); PLATELET COUNT (AUTO) 194 K/uL (150-450); RED BLOOD CELL COUNT(AUTO) 5.16 MIL/uL (4.5-6.0); WHITE BLOOD COUNT (AUTO) 9.8 K/uL (4.3-11.0)
[2022-11-23 07:06] LABS: ALBUMIN 4.5 g/dL (3.4-5.0); BILIRUBIN,DIRECT 0.3 mg/dL (0.0-0.2); BILIRUBIN,TOTAL 0.8 mg/dL (0.2-1.0); CALCIUM, SERUM 10.2 mg/dL (8.5-10.1); CREATININE 0.9 mg/dL (0.6-1.3); POTASSIUM 3.9 mmol/L (3.5-5.1); TOTAL PROTEIN, SERUM 8.6 g/dL (6.4-8.2)
[2022-11-23] MEDS ORDERED: MORPHINE SULFATE INJ 4 MG/ML DISP.SYRIN ONE (07:28)
[2022-11-23] MEDS ORDERED: MORPHINE SULFATE INJ 2 MG/ML DISP.SYRIN IV ONE (07:30)
[2022-11-23] MEDS ORDERED: ACETAMINOPHEN 325 MG TABLET PO PRN (08:00)
[2022-11-23] MEDS ORDERED: *INSULIN REGULAR(HUMULIN R)HUM 100 UNIT/ML VIAL SQ PRN (08:00)
[2022-11-23] MEDS ORDERED: MORPHINE SULFATE INJ 2 MG/ML DISP.SYRIN IV PRN (08:00)
[2022-11-23] MEDS ORDERED: hydrALAZINE HCL IV 20 MG VIAL IV PRN (08:00)
[2022-11-23] MEDS ORDERED: ONDANSETRON HCL/PF 4 MG/2 ML VIAL IVP PRN (08:00)
[2022-11-23] MEDS: BLOOD SUGAR DIAGNOSTIC 1 EACH STRIP VI SCH ×4 (08:00→22:27)
[2022-11-23] MEDS ORDERED: DEXTROSE 50%-WATER 50 ML DISP.SYRIN IV PRN (08:00)
[2022-11-23 08:25] VITALS: O2SAT 99
[2022-11-23] MEDS ORDERED: MULT-754 PO (08:38)
[2022-11-23] MEDS ORDERED: ICOS1CAP PO (08:38)
[2022-11-23] MEDS ORDERED: CALC-15 PO (08:38)
[2022-11-23] MEDS ORDERED: CLOT15CR27 TP (08:38)
[2022-11-23] MEDS ORDERED: [UNRECOGNIZED DRUG - OTHER] PO (08:38)
[2022-11-23] MEDS ORDERED: ALPR0.5T PO (08:38)
[2022-11-23] MEDS ORDERED: INSU3INS8 SQ (08:38)
[2022-11-23] MEDS ORDERED: MECL-159 PO (08:38)
[2022-11-23] MEDS ORDERED: ASPI-1169 PO (08:38)
[2022-11-23 09:02] LABS: LACTIC ACID 2.5 mmol/L (0.4-2.0)
[2022-11-23 09:30] VITALS: BP 120/93; TEMP 97.9; O2SAT 95
[2022-11-23] MEDS: HEPARIN SODIUM, PORCINE 5000 UNITS/1 ML VIAL SQ SCH ×2 (10:30→21:53)
[2022-11-23] MEDS: IV NS 0.9% 1,000 ML IV SCH (10:31)
[2022-11-23 16:08] VITALS: BP 123/65; TEMP 97.7
[2022-11-23 16:12] VITALS: BP 149/88; TEMP 97.8; O2SAT 94
[2022-11-23] MEDS ORDERED: MORPHINE SULFATE INJ 2 MG/ML DISP.SYRIN IV STA (17:11)
[2022-11-23] MEDS ORDERED: MORPHINE SULFATE INJ 4 MG/ML DISP.SYRIN IV PRN (17:30)
[2022-11-23] MEDS: INSULIN REGULAR, HUMAN 100 UNIT/ML 3 ML VIAL SQ PRN (18:24)
[2022-11-23 20:00] VITALS: BP 145/87; TEMP 98.2; O2SAT 97
[2022-11-24] MEDS: IV NS 0.9% 1,000 ML IV SCH ×2 (02:42→10:40)
[2022-11-24 05:48] LABS: BASOPHILS % (AUTO) 0.2 % (0.0-2.0); EOSINOPHILS # (AUTO) 0.1 K/uL (0.0-0.7); EOSINOPHILS % (AUTO) 1.1 % (0.0-6.0); HEMATOCRIT 48 % (39-51); HEMOGLOBIN 15.9 g/dL (13.5-17.5); LYMPHOCYTES # (AUTO) 1.3 K/uL (0.8-4.8); LYMPHOCYTES % (AUTO) 16.2 % (20.0-44.0); MEAN CORPUSCULAR HEMOGLOBIN 32 PG (26.0-33.0); MEAN CORPUSCULAR HGB CONC 33 g/dl (31.0-36.0); MEAN CORPUSCULAR VOLUME 97 fL (80-96); MONOCYTES # (AUTO) 1.3 K/uL (0.1-1.30); MONOCYTES % (AUTO) 15.5 % (2.0-12.0); NEUTROPHILS # (AUTO) 5.6 K/uL (1.8-8.9); PLATELET COUNT (AUTO) 186 K/uL (150-450); RED BLOOD CELL COUNT(AUTO) 4.97 MIL/uL (4.5-6.0); RED CELL DISTRIBUTION WIDTH 14.1 % (11.5-15.0); WHITE BLOOD COUNT (AUTO) 8.3 K/uL (4.3-11.0)
[2022-11-24 06:01] LABS: ALBUMIN 4.2 g/dL (3.4-5.0); CALCIUM, SERUM 9.3 mg/dL (8.5-10.1); CREATININE 0.8 mg/dL (0.6-1.3); MAGNESIUM 2.1 mg/dL (1.8-2.4); PHOSPHORUS 3.4 mg/dL (2.5-4.9); POTASSIUM 3.9 mmol/L (3.5-5.1); TOTAL PROTEIN, SERUM 8.2 g/dL (6.4-8.2)
[2022-11-24] MEDS: BLOOD SUGAR DIAGNOSTIC 1 EACH STRIP VI SCH ×4 (06:55→22:05)
[2022-11-24] MEDS: INSULIN REGULAR, HUMAN 100 UNIT/ML 3 ML VIAL SQ PRN ×3 (06:56→16:36)
[2022-11-24 07:00] VITALS: BP 154/96; TEMP 99; O2SAT 98
[2022-11-24] MEDS: HEPARIN SODIUM, PORCINE 5000 UNITS/1 ML VIAL SQ SCH ×2 (08:09→20:22)
[2022-11-24] MEDS ORDERED: DIATR MEGLU/DIATRIZOATE SODIUM 120 ML BOTTLE (GASTROGRAPHIN) ONE (10:49)
[2022-11-24] MEDS ORDERED: KETOROLAC TROMETHAMINE 15 MG/ML VIAL ONE (14:17)
[2022-11-24 16:00] VITALS: BP 135/87; TEMP 97.5; O2SAT 95
[2022-11-24 20:00] VITALS: BP 138/78; TEMP 97.5; O2SAT 97
[2022-11-25] MEDS: INSULIN REGULAR, HUMAN 100 UNIT/ML 3 ML VIAL SQ PRN ×2 (06:31→12:10)
[2022-11-25] MEDS: BLOOD SUGAR DIAGNOSTIC 1 EACH STRIP VI SCH ×2 (06:45→12:11)
[2022-11-25 07:30] VITALS: BP 129/88; TEMP 98.8; O2SAT 96
[2022-11-25] MEDS: HEPARIN SODIUM, PORCINE 5000 UNITS/1 ML VIAL SQ SCH (09:00)
[2022-11-25] MEDS: IV NS 0.9% 1,000 ML IV SCH ×2 (13:20)
== END 2022-11-25 17:45 | disposition home or self-care (01) | DRG 389 ==
LOC: ER 05:14 → MED 08:34
PROVIDERS: ADMIT Internal Medicine; ATTEND Internal Medicine
DX: K56.51 Intestinal adhesions [bands], with partial obstruction (principal); E87.20 Acidosis, unspecified; E11.9 Type 2 diabetes mellitus without complications; I10 Essential (primary) hypertension; Z98.890 Other specified postprocedural states
CPT/HCPCS: 36415; 71045-TC; 74250-TC; 80048-TC; 80053-TC; 80076-TC; 82962-TC; 83605-TC; 83690-TC; 83735-TC; 84100-TC; 85025-TC; G0378; J1644; J1815; J1885; J2270; J2405; J7030; Q9963